=== PATIENT | male | born 1945 | race Caucasian/White ===

== ENCOUNTER → 2019-05-15 | Outpatient (CLI) | payer SELFPAY ==
--- NOTE | 2019-05-15 12:35 | CT_ITS ---
STUDY: CARDIAC CALCIUM SCORING - CT CHEST REASON FOR EXAM: Male, 73 years old. Screening RADIATION DOSAGE (If Supplied By Facility): CTDIvol = ( 12.19 ) mGy, DLP = ( 219.42 ) mGycm TECHNIQUE: Axial non-enhanced images were acquired through the heart for the sole purpose of measuring coronary artery calcium. Individualized dose optimization techniques were used for this CT. COMPARISON: None. FINDINGS: Please see the patient's medical record for a personalized calcium score. There are mild emphysematous changes noted in the lungs. CT/CCTA Calcium Scoring IMPRESSION: Please see the patient's medical record for a personalized calcium score. Mild emphysema. Please go to: [email or web address] , for a description of the calculator. Electronically Signed: Chaim Booth, at 14:49 EDT Tel , Service support ,
--- NOTE | 2019-05-15 12:35 | CT_ITS ---
STUDY: CARDIAC CALCIUM SCORING - CT CHEST REASON FOR EXAM: Male, 73 years old. Screening RADIATION DOSAGE (If Supplied By Facility): CTDIvol = ( 12.19 ) mGy, DLP = ( 219.42 ) mGycm TECHNIQUE: Axial non-enhanced images were acquired through the heart for the sole purpose of measuring coronary artery calcium. Individualized dose optimization techniques were used for this CT. COMPARISON: None. FINDINGS: Please see the patient's medical record for a personalized calcium score. There are mild emphysematous changes noted in the lungs. CT/Limited Chest CT w/CCTA IMPRESSION: Please see the patient's medical record for a personalized calcium score. Mild emphysema. Please go to: [email or web address] , for a description of the calculator. Electronically Signed: Chaim Booth, at 14:49 EDT Tel , Service support ,
[2019-05-15 12:44] VITALS: BP 162/73; PULSE 57; RESP 16; O2SAT 94
--- NOTE | 2019-05-15 15:41 | CA.SCORE ---
Calcium Scoring Date of Study:: 05/15/19 Coronary Calcium Scoring: High-resolution Computed Tomographic imaging of the chest was performed on [05/15/2019 ], with particular attention paid to the coronary arteries. Images from the examination were analyzed for the presence and extent of coronary artery calcification , using coronary calcium quantification software. The patient tolerated the procedure well and there were no complications. The results of the coronary calcification analysis are provided below. - Findings Left Main (LM): 0 Left Anterior Descending (LAD): 548 Left Circumflex (LCX): 0 Right Coronary Artery (RCA): 805 Total Agatston Score: 1,353 Percentile Rankin - Conclusion Calcium Scoring Interpretation: Calcium Score Interpretation 0 No identifiable atherosclerotic plaque. Very low cardiovascular disease risk. <5% chance of presence coronary artery disease A Negative Examination 1-10 Minimal Plaque burden. Significant coronary artery disease very unlikely. 11-100 Mild plaque burden. Likely mild or minimal coronary atherosclerosis. 101-400 Moderate plaque burden Moderate non-obstructive coronary artery disease highly likely. Over 400 Extensive plaque burden. High likelihood of at least one significant coronary stenosis (>50% diameter) The total calcium score (1353) is between the 75th and 90th percentile for men over the age of 74. (Exact percentile calculated to be 79%; this means 70% of the population has a lower calcium score in 21% of the population is a higher calcium score than this patient.) Full evaluation of cardiac risk including assessment of all conventional risk factors and the scores and percentile rankings reported herein should be evaluated in this context.
== END | disposition home or self-care (01) ==
PROVIDERS: Family Provider Internal Medicine; PCP Internal Medicine; Referring Provider Internal Medicine; Visit Provider Internal Medicine
DX: E78.5 Hyperlipidemia, unspecified (principal)
CPT/HCPCS: 75571; 76380

== ENCOUNTER → 2019-06-03 | Outpatient (CLI) | payer MEDICARE, SELFPAY ==
[2019-06-03 11:32] VITALS: BMI 34.5
[2019-06-03 12:38] LABS: Absolute Lymphocyte Count 2.02 X10^3/uL (0.83-4.51); Absolute Neutrophil Count 6.7 X10^3/uL (2.0-7.7); Basophil# 0.04 X10^3/uL; Basophil% 0.4 % (0-1); Eosinophil# 0.34 X10^3/uL; Eosinophils% 3.4 % (0-5); Hematocrit 44.7 % (40-54); Hemoglobin 15.1 g/dL (13.0-16.5); Lymphocyte # 2.02 X10^3/ul (4.0); Lymphocyte % 20.5 % (19-41); Mean Corp Hgb Conc 33.8 g/dL (32-36); Mean Corpuscular Hgb 30.2 pg (27.0-32.0); Mean Corpuscular Volume 89.4 fL (80-94); Mean Platelet Vol. 10.4 fl (6.2-12.0); Monocyte# 0.76 X10^3/uL; Monocyte% 7.7 % (0-10); NRBC Flagged by Analyzer 0 % (0-5); Neutrophil # 6.68 X10^3/uL (2.7-7.7); Neutrophil % 67.7 % (47-70); Platelet Count 196 K/mm3 (150-450); RBC Distribution Width CV 13.5 % (11.6-14.6); RBC Distribution Width SD 44.3 fl (35.1-43.9); White Blood Count 9.9 K/mm3 (4.4-11.0)
[2019-06-03 13:03] LABS: Anion Gap 5 (5-15); BUN 24 mg/dL (7-18); Calcium,Total 9.6 mg/dL (8.5-10.1); Chloride 106 mmol/L (98-107); EST Glomerular Filtration Rate 63 mL/min (>60); Est Glom Filt Rate - Afr Amer 76 mL/min (>60); Glucose 116 mg/dL (74-106); Sodium Level 138 mmol/L (136-145)
== END | disposition home or self-care (01) ==
PROVIDERS: Family Provider Internal Medicine; PCP Internal Medicine; Referring Provider Internal Medicine Cardiovascular Disease; Visit Provider Internal Medicine Cardiovascular Disease
DX: R93.1 Abnormal findings on diagnostic imaging of heart and coronary circulation (principal); I10 Essential (primary) hypertension
CPT/HCPCS: 36415; 80048; 85025

== ENCOUNTER 2019-06-29 07:53 | Day surgery (SDC) | payer MEDICARE, SELFPAY ==
[2019-06-03 11:32] VITALS: BMI 34.5
[2019-06-26 14:16] VITALS: BMI 34.5
[2019-06-29 08:08] VITALS: BMI 35.2
--- NOTE | 2019-06-29 08:10 | PCM.HP.BLA ---
<KayeChet - Last Filed: 06/29/19 09:12> History and Physical Patient seen and evaluated. No changes noted. <Dante Douglass - Last Filed: 06/29/19 10:55> History and Physical Date of Admission: 06/29/19 HPI HPI History of Present Illness Details: Pleasant 73-year-old man with a history of hypertension hyperlipidemia who presents for evaluation of his elevated calcium score. In 2000 he had undergone a stress test which was apparently abnormal and underwent a cardiac catheterization with demonstrated no significant abnormalities. He also underwent stress testing in 2013 for atypical chest discomfort we did not do note any ischemia. A prior echocardiogram had been performed in 12/2012 with preserved ejection fraction of 65%. He does have some shortness of breath with exertion but has had no chest pain no palpitations no presyncope or syncope. He has been compliant with his medications and his lipid profile have actually been excellent. He did undergo a coronary calcium score and it was noted that he had calcification in the left anterior descending artery as well as the right coronary artery of over 400 units his total score was over 1300 units. His physical exam here today demonstrates clear lung patino regular rate and rhythm no pedal edema his electrocardiogram in your office demonstrated sinus bradycardia with a rate of 57 bpm. Intake Vital Signs 06/03/19 Height 6 ft 1 in 06/03/19 Weight: 262 lb 06/03/19 Body Mass Index (BMI) 34.5 06/03/19 Blood Pressure 167/91 H 06/03/19 Respiratory Rate 18 06/03/19 Pulse Rate 62 06/03/19 Pulse Ox 95 Intake Visit Reasons: PCP ref'd for abn calcium score Allergies No Known Allergies Allergy (Verified 06/03/19 10:03) Medications ascorbic acid (vitamin C) 1,000 mg tablet 1 g PO DAILY tab 06/02/19 [History Confirmed 06/03/19] atenolol 25 mg tablet 25 mg PO DAILY 06/02/19 [History Confirmed 06/03/19] biotin 1 mg capsule 1 mg PO DAILY 06/02/19 [History Confirmed 06/03/19] cholecalciferol (vitamin D3) 2,000 unit capsule 2,000 unit PO DAILY 06/02/19 [History Confirmed 06/03/19] cyanocobalamin (vitamin B-12) 1,000 mcg capsule 1,000 mcg PO DAILY 06/02/19 [History Confirmed 06/03/19] losartan 100 mg-hydrochlorothiazide 25 mg tablet 1 tab PO DAILY 06/02/19 [History Confirmed 06/03/19] multivitamin tablet 1 tab PO DAILY 06/02/19 [History Confirmed 06/03/19] omega-3 fatty acids 1,000 mg capsule 1,000 mg PO DAILY 06/02/19 [History Confirmed 06/03/19] rosuvastatin 20 mg tablet 20 mg PO DAILY 06/02/19 [History Confirmed 06/03/19] PENDING SALE TO [facility] Medical History Atherosclerosis of coronary artery of [place] heart without angina pectoris (Chronic) Essential (primary) hypertension (Chronic) Hyperlipidemia (Chronic) Arthritis (Chronic) Dupuytrens contracture (Chronic) Kidney stones (Chronic) Obesity (Chronic) Type 2 diabetes mellitus (Chronic) Vitamin D deficiency (Chronic) Surgical History H/O arthroscopic knee surgery (Resolved) History of foot surgery (Resolved) History of left heart catheterization (Resolved 2000) History of vasectomy (Resolved) Family History Brother Heart disease valvular Other Colon cancer Social History (Updated 06/03/19 @ 11:53 by Chet Restrepo MD) Smoking Status: Former smoker alcohol intake: current alcohol intake frequency: other ROS Const Const: Negative for fatigue, weakness, headache(s), frequent falls, difficulty sleeping or excessive sweating Eyes Eyes: Negative for loss of peripheral vision, transient loss of vision, blurry vision, double vision or tunnel vision ENT ENT: Negative for headache(s), dizziness, Nosebleed/epistaxis or balance problems Cardio Chest Pain: No Palpitations: No Edema: None Muscle aches with walking: None Resp Respiratory: Positive for SOB with activity; negative for SOB at rest, SOB orthopnea\SOB lying down, Cough or paroxysmal nocturnal dyspnea GI GI: Negative nausea, vomiting, heartburn or black,tarry stools : Negative for hematuria Musc Musc: Negative for muscle aches/ myalgia, muscle weakness, joint pain or balance problems Skin Skin: Negative non-healing lesions, rash or unusual bruising Neuro Neuro: Negative for dizziness, lightheadedness, near syncope, syncope, orthostatic symptoms, frequent falls, headache(s), weakness, blurry vision, double vision or lack of coordination Prudencio Hematologic/Lymphatic: Negative for easy bleeding or easy bruising Endo Endo: Negative for fatigue, excessive sweating or increased thirst/drinking Psych Psych: Negative for anxiety or depression Allergy Allergy/Immunology: Negative for hives, Negative for rash Cardiology Exam Const Appearance: cooperative, healthy appearing, no acute distress, well developed and well groomed Nutritional Appearance: average body habitus and well nourished Orientation: alert, awake and oriented x3 Head Head: normal to inspection, normocephalic and atraumatic Ears: hearing grossly normal bilaterally and external ears normal Nose: external nose normal, nares normal, nasal mucous membranes and turbinates normal, septum normal, no nasal discharge Face and Sinus: face symmetric Mouth: oral mucosae normal, tongue normal, oropharynx normal and moist mucous membranes Teeth and gingiva: dentition normal Throat: posterior oropharynx normal, tonsils normal and uvula midline Eyes General: appearance normal, both eyes and all related structures Eyelids: eyelids normal Conjunctivae: conjunctivae normal Pupils: PERRL, normal by confrontation and accommodation normal EOM: EOM intact bilaterally Neck Neck: normal visual inspection, trachea midline and no JVD JVD: +5 Carotids: normal carotid upstroke and bounding pulses Chest Chest inspection: normal inspection of the chest, symmetric chest movement and normal respiratory effort Auscultation: Bilateral: Clear to Auscultation Cardio Palpation: normal PMI Rate: regular rate Rhythm: regular rhythm Heart sounds: S1 normal, S2 normal and normal, physiologic split S2; negative rub, gallop or murmur GI GI: normal to inspection, soft, no hepatosplenomegaly and bowel sounds present Neuro General: alert, awake, oriented x3, gait normal, moves all extremities and no focal sensory deficit Skin Skin: no rashes or lesions noted Extremities Pulses: Normal: Right Femoral Pulse, Left Femoral Pulse, Right Dorsalis Pedis Pulse, Left Dorsalis Pedis Pulse, Right Posterior Tibial Pulse, Left Posterior Tibial Pulse, Right Radial Pulse, Left Radial Pulse Lower Extremity Edema: None: Bilateral Musculoskel Musculoskeletal: No joint tenderness Psych Psychological: normal affect Assessment & Plan 1. Abnormal Heart Score CT R93.1 Plan He does have an abnormal calcium score predominantly in the LAD and right coronary artery distributions. I did discuss with him about the risk benefits and alternatives and treatment modalities. At this time he would prefer a left heart catheterization though he is asymptomatic. I have discussed the above with him he is agreeable to proceed and we would undertake this in the next few weeks. Orders Orders: 12 Lead EKG performed by B[facility] Today Left Heart Cath/COR/LV Percut 4 Weeks Basic Metabolic Profile (BMP) Today CBC W/Diff, Automated Today 2. Essential (primary) hypertension I10 Plan He does have a history of hypertension and his blood pressure is under good control as per your office notes. His blood pressure here today is elevated for obvious reasons. Orders Orders: 12 Lead EKG performed by [facility] Today CBC W/Diff, Automated Today 3. Hyperlipidemia E78.5 Plan He does have a history of hyperlipidemia and is aggressively treated through your office. I would not suggest that we make any changes. I will complicate the results of his heart catheterization with you afterwards. Orders Orders: 12 Lead EKG performed by [facility] Today Plan Detail Other Orders Orders: 12 Lead EKG performed by BMS Today I25.10 Follow Up 1 Year (termination clerk) Coding Level of Care Code Off vis,new,level 4 Diagnoses Abnormal Heart Score CT R93.1 Essential (primary) hypertension I10 Hyperlipidemia E78.5 Coding Level of Care Code Off vis,new,level 4 Diagnoses Abnormal Heart Score CT R93.1 Essential (primary) hypertension I10 Hyperlipidemia E78.5 Supplemental Info Supplemental Information Diagnostics Stress Test Nuclear Medicine 12/08/13 Chest X-Ray 01/24/[address] 05/15/19 06/03/19 [id number]<Electronically signed by Chet Restrepo MD> Date Chet Restrepo MD
--- NOTE | 2019-06-29 09:53 | CL.D_ITS ---
Patient Name: RANI VELASCO Study Date: 06/29/2019 Performing: Chet Restrepo MD Ht: 72.83 inches 185 cm : 1945 Wt: 262.35 lbs 119 kg Age: 73 Gender: male BSA: 2.41 PROCEDURE(S) PERFORMED BN84-DKK/COR/LV CLINICAL PROFILE AND INDICATIONS Indications: Suspected CAD Heart Failure: None Stress/Imaging Stress/Image Study Performed: No CAD Presentations: No Sxs, no angina. Other: calcium score high CONCLUSIONS Non obstructive coronary arteries RECOMMENDATIONS Medical therapy DESCRIPTION OF PROCEDURE The patient arrived to the procedure lab. The risks and benefits of the procedure as well as a full d escription of our services here and current unavailability of surgical backup were fully explained to the patient and/or their significant other prior to the catheterization. The Timeout was completed, verifying the correct patient and procedure. The patient's procedural site was prepped and draped in the usual fashion. Local anesthetic was given subcutaneously to right radial region with Lidocaine 2% . Using a modified Seldinger technique, arterial access was obtained via the right radial artery, a 6 Fr sheath was inserted. Left Coronary Artery selective angiography was performed in multiple views u sing a 5 Fr. 4.0 [place] catheter. Right Coronary Artery selective angiography was then performed in mu ltiple views using a 5 Fr. 4.0 [place] catheter. Left Ventriculography was performed in REDD projection using a 5 Fr. Pig[place] catheter. LV to AO pullback pressures were then recorded.The arterial sheath was pulled and a TR Band was applied for hemostasis w/ 11ml air CORONARY ANGIOGRAPHY DOMINANCE: Right Dominant LEFT HEART ASSESSMENT Left Ventricular Ejection Fraction: by LV Gram 60 % Normal LV wall motion Normal Left Ventricular systolic function LEFT MAIN: Angiographically normal LEFT ANTERIOR DESCENDING ARTERY: Mild calcification, Mild luminal irregularities CIRCUMFLEX ARTERY: Mild luminal irregularities RIGHT CORONARY ARTERY: Mild luminal irregularities less than 30% COMPLICATIONS No Complications PROCEDURE MEDICATIONS Versed 1 mg IV Fentanyl 50 mcg IV Versed 1 mg IV Oxygen: 2 L/min via nasal cannula Heparin diluted in 23cc Heparinized saline. Patient given 10cc IA of this solution. 06/29/2019 09:23: 00 SUMMARY OF HEMODYNAMIC DATA Time AIR REST ECG 08:13:17 AO 119/57 (82) SA 09:27:34 LV 126/-14, 3 09:36:17 LV 123/-14, 2 09:36:21 LV 131/-12, 12 09:37:04 LVp 129/-12, 6 09:37:18 AOp 135/55 (84) 09:37:23 Signed By Chet Restrepo MD On 06/29/2019 09:52:33 Chet Restrepo MD
== END 2019-06-29 12:00 | disposition home or self-care (01) ==
LOC: CLSP 07:54
PROVIDERS: Family Provider Internal Medicine; PCP Internal Medicine; Referring Provider Internal Medicine Cardiovascular Disease; Visit Provider Internal Medicine Cardiovascular Disease
DX: R93.1 Abnormal findings on diagnostic imaging of heart and coronary circulation (principal); R06.02 Shortness of breath; I25.10 Atherosclerotic heart disease of native coronary artery without angina pectoris; I10 Essential (primary) hypertension; E78.5 Hyperlipidemia, unspecified; M19.90 Unspecified osteoarthritis, unspecified site; E11.9 Type 2 diabetes mellitus without complications; E66.9 Obesity, unspecified; Z68.34 Body mass index [BMI] 34.0-34.9, adult; Z87.442 Personal history of urinary calculi; Z87.891 Personal history of nicotine dependence; Z79.899 Other long term (current) drug therapy
CPT/HCPCS: 93458; 99152; 99153; J7040; Q9967; C1769; C1894

== ENCOUNTER 2019-12-11 14:30 | Outpatient (RCR) | payer MEDICARE, SELFPAY ==
--- NOTE | 2019-12-09 08:46 | HP.PTEVAL ---
Patient's Visit Information RANI VELASCO Jr. is a 74 year old M referred to Physical Therapy by Chaim Pat MD with a diagnosis of R hip OA. Date of Evaluation: 12/09/19 Physical Therapist: Zev Denney, PT, ATC - Visit Plan Frequency: 1x/Week Duration: 1 Week Plan: Issue and instruct pt on HEP consisting of R hip and core strengthening ex's - Subjective Findings: Pt reports he has a chronic Hx of R hip pain. Pt reports he had xrays which revealed he is bone on bone in the R hip. Pt reports he is taking pain meds for his R hip, but notes he has been told he needs to have a DAY. Pt reports pain will awaken him in the morning. Pt reports he has pain mostly when he stands or walks for a long period of time. Pt reports his R LE will occasionally feel like it is going to give out on him. No falls at this time. Pt reports he is planning to go to [employer] on the of this month and would like to do all he can prior to leaving. 1/10 pain at rest, 6/10 pain at worst - Pain R hip Pain Intensity (Out of 10): 1 Pain Intensity Range: 6 - Objective Neuro: B LE sensation is WNL to light touch. Patellar reflex = 1/3. Palpation: No abnormalities or deformities at this time. Minor pain on greater trochanter. ROM: B LE's are WFL at this time compared bilaterally. MMT: R hip IR and ER 4-/5 and painful with testing. All other movements 5/5 throughout. Balance: Pt is unable to single limb stance without holding on with UE's - Goals Goal 1:: I with HEP after 2 visits Goal Time Frame: 1 Week - Rehabilitation Potential Physical Therapy Diagnosis: Pt has R hip pain, weakness, and intolerance for prolonged ambulation secondary to R hip OA Rehabilitation Potential: Good - Anticipated Interventions Patient/Client Instruction: Educate patient on: Condition, Plan of Care For the Purpose of:: To improve self management Therapeutic Exercise to Include: Strength training, Balance training, Dynamic Lumbar Stabilization For the Purpose of:: To decrease pain, To improve muscle performance and motor function Thank you for the opportunity to evaluate your patient. For Medicare and Medicare HMO plans, please review the plan of care and approve it. It will need to be FAXED BACK to us at [phone] for Medicare purposes. For Medicare only, by signing this I certify the plan of care. Please let me know if there are questions or concerns regarding this plan of care. Physician Signature: Date:
--- NOTE | 2019-12-11 15:08 | HP.PTDCSUM ---
HP - PT D/C Summary It has been my pleasure to treat RANI VELASCO Jr. under orders from Chaim Pat MD, for the diagnosis of R hip OA for a total of 2 visit(s). Discharge Date: Please see the following information for a summary of their discharge status. - Subjective Subjective: Pt reports he is sore today - Pain R hip Pain Intensity (Out of 10): 2 - Objective Objective/Function: Pt is now I with HEP - Goals Goal 1:: I with HEP after 2 visits - Plan Plan: Discharge - D/C Information If there are questions or concerns regarding this patient's physical therapy, please feel free to call me at [phone]. Thank you for the referral of this patient. Sincerely, Zev Denney, PT, ATC
== END 2019-12-11 19:00 | disposition home or self-care (01) ==
LOC: PT 14:30
PROVIDERS: PCP Internal Medicine; Referring Provider Specialist; Visit Provider Specialist
DX: M16.11 Unilateral primary osteoarthritis, right hip (principal)
CPT/HCPCS: 97110; 97161

== ENCOUNTER → 2020-01-12 09:46 | Outpatient (CLI) | payer MEDICARE, SELFPAY ==
[2020-01-12 11:06] LABS: Creatinine, Serum 1.12 mg/dL (0.70-1.30); EST Glomerular Filtration Rate 68 mL/min (>60); Est Glom Filt Rate - Afr Amer 82 mL/min (>60)
== END ==
PROVIDERS: PCP Internal Medicine; Referring Provider Specialist; Visit Provider Specialist
DX: R22.42 Localized swelling, mass and lump, left lower limb (principal)
CPT/HCPCS: 36415; 82565

== ENCOUNTER → 2020-03-22 10:57 | Outpatient (CLI) | payer MEDICARE, SELFPAY ==
--- NOTE | 2020-03-22 11:03 | RAD_ITS ---
STUDY: X-RAY CHEST REASON FOR EXAM: Male, 74 years old. Preop for hip surgery TECHNIQUE: 2 PA and 2 lateral views of the chest COMPARISON: 2014 FINDINGS: There are interstitial changes of the lungs. There is no demonstrated pleural abnormality. Normal size heart. Normal mediastinum and carroll. Normal visualized pulmonary arteries. Normal visualized aortic arch and descending thoracic aorta. There are diffuse degenerative changes of the visualized thoracic spine. Normal visualized ribs, clavicles, and shoulders. There is no demonstrated abnormality of the visualized soft tissue structures of the upper abdomen. RAD/Chest PA and Lateral IMPRESSION: Nonacute interstitial changes in both lung patino without a superimposed acute pulmonary process. Electronically Signed: Eugene Russell MD at 11:38 EDT , Service support ,
== END ==
PROVIDERS: PCP Internal Medicine; Referring Provider Internal Medicine; Visit Provider Internal Medicine
DX: Z01.818 Encounter for other preprocedural examination (principal)
CPT/HCPCS: 71046

== ENCOUNTER 2020-03-30 07:09 | Observation (INO) | payer MEDICARE, SELFPAY ==
--- NOTE | 2020-03-15 13:52 | HP.PCM_ITS ---
History and Physical History and Physical [facility] Patient Name: Carlos Suarez Jr : 1945 From: SUNIL LEWIS PA-C DATE OF SURGERY: 03/23/2020 SCHEDULED PROCEDURE: Right total hip arthroplasty HISTORY OF PRESENT ILLNESS: Preoperative history and physical exam was performed on March 14, 2020. This is a 74-year-old male who has been having ongoing pain in his right hip since September 2019. Patient denied any significant trauma or injury. His pain can reach a size a 6/10. He describes his pain as being aching and sharp. He has increased pain going up and down stairs. He does have start up pain. Pain is located in the lateral hip, groin, anterior thigh. Pain does occasionally wake him at night. Patient has difficult time with activities of daily living including getting dressed and putting on his socks and shoes. Patient did go on vacation earlier this year which increased his right hip pain which she was placed on prednisone pack. His walking has been significantly affected. Patient has tried conservative measures consisting of rest with no relief in symptoms. He has attempted previous physical therapy and home exercises with no relief. He states he has been using meloxicam with minimal relief. Denies previous surgery on the right hip. Patient denies recent fevers, chills, recent infections. We are obtaining surgical clearance from patient's primary care physician Dr. walker. Patient has had a previous heart catheterization by Dr. Restrepo June 29, 2019. He currently denies any chest pain, shortness of breath, fevers chills, recent infections. After failing conservative measures and discussing treatment options with Dr. Chaim Pat, the patient does wish to proceed with a right total hip arthroplasty. REVIEW OF SYSTEMS: ROS: Const: Denies anorexia, change in appetite, fever, difficulty sleeping, weight change. CV: Denies chest pain, heart murmur, irregular heartbeat and peripheral vascular disease. Resp: Denies asthma, cough, pneumonia, sleep apnea, shortness of breath, tuberculosis and wheezing. GI: Denies constipation, diarrhea, heartburn, nausea, rectal itching, bloody stools and vomiting. : Denies incontinence. Musculo: Denies leg swelling, pain, trouble walking and weakness. Skin: Denies Raynaud's, history of shingles and tattoo. Neuro: Denies ambulatory dysfunction, dizziness, numbness/tingling and tremor. Psych: Denies anxiety, depression, insomnia, mental illness and stress. Prudencio/Lymph: Denies anemia, bleeding/bruising tendency and past transfusion. Reviewed, no changes. PAST MEDICAL HISTORY: Advance Care Plan: Other Directive, LIVING WILL Effective Date: 05/15/2018 Other Directive, POA Effective Date: 05/15/2018 PMH: Medical Problems: Arthritis, High Blood Pressure, Kidney Stones, Hypercholesterolemia Accidents: None Surgical Hx: LT Knee Arthroscopy - (12/2011) LT Toe SX - (1993) [facility] Anesthesia Complications: None Assistive Devices: Glasses Reviewed, no changes. SOCIAL HISTORY: SH: Marital: .Occupation: Retired.Work Status: Retired.Hand Dominance: Right- Handed. Personal Habits: Smoking: Patient is a former smoker.Cigarette Use: Former.Alcohol: Daily.Drug Use: Denies Use.Enjoy Exercising: Exercises 1-3 X/Week. Reviewed, no changes. VITALS: Ht: 72.5 Wt: 278lb Wt k.101 BMI: 37.2 BP: 186/108 Pulse: 88 Resp: 16 T: 97.2 T: 36.2C ALLERGIES: No Known Drug Allergy MEDICATIONS: Meloxicam 15 mg 1 by mouth every day, Atenolol 25 mg 1 tab PO daily, Losartan Potassium 100 mg 1 tab PO daily, Vitamin C 1000 mg 1 tab PO daily, Vitamin D3 5000 Unit 1 cap PO daily, Centrum Silver 1 tab PO daily, Fish Oil 1000 mg 1 cap PO every other day, Flax Seed Oil 1300 mg 1 cap PO every other day, Vitamin B-12 2500 mcg 1 tab PO every other day, Biotin 5000 mcg 1 cap PO every other day, Aspirin 81 mg 1 by mouth every day PRE-OP EXAM: General appearance:NORMAL Other: Eyes: Conjunctivae and lids: NORMAL Pupils: ERR Ears, Nose, Mouth, and Throat: NORMAL Other: Inspection of lips, teeth and gums: NORMAL Other: Neck: Examination of neck: no masses noted. Respiratory: Assessment of respiratory effort: NORMAL Other: Auscultation of lungs: clear to auscultation no wheezes, rhonchi or rales. Cardiovascular: Auscultation of heart: regular rate and rhythm, no murmurs, gallops or rubs. Exam of carotid arteries: NORMAL Other: Gastrointestinal: Exam of abdomen: soft, nontender, nondistended bowel sounds present. PHYSICAL EXAMINATION: She does walk with an antalgic gait. Right hip is cool to touch without erythema or signs of infection. Right hip has tenderness to palpation of the lateral aspect. Range of motion right hip: Flexion 60, internal rotation 40, external rotation 20, positive obligatory external rotation with flexion. 4/5 hip strength. Sensation intact to light touch. Neurovascularly intact. IMAGING STUDIES: Previous x-rays of the right hip reveal joint space narrowing, subchondral sclerosis, osteophyte formation consistent with severe stage IV osteoarthritis. IMPRESSION: 1. Severe right hip osteoarthritis 2. Hypertension 3. Hyperlipidemia 4. History of kidney stones 5. History of heart catheterization June 29, 2019 PLAN: Dr. Chaim Pat did discuss and review with the patient all treatment options including surgical versus nonsurgical options. Patient does wish to proceed with the above-stated procedure. Potential risks, benefits, and complications of the procedure were discussed in detail including but not limited to , infection, nerve and blood vessel damage, persistent pain, numbness, tingling, paresthesias, blood clot, pulmonary embolism, and requirement for possible further surgery. The patient expressed full understanding and has no further questions for the doctor. Patient does agree to proceed with the above-stated procedure and has signed the surgery consent form. We discussed the current risks associated with COVID 19. This does include the risk of exposure while in the hospital. Patient was reassured local hospitals have low infection rates and are taking all necessary precautions to avoid exposure to patients. In addition, we discussed strategies that can be used to help limit exposure including those that limit the patient's time in the hospital. Also using strategies to limit the patient's need for continued inpatient services after being discharged from the hospital. Patient was notified that we will need to comply with any screening or testing the hospital wishes to perform or that surgery may be delayed for any positive results. This dictation was created using voice recognition software. Phonetic and/or grammatical errors may exist. ___ I have re-examined the patient. There are no clinical changes since date of exam. ___ See progress notes for changes. ___ Dictated on admission Date: Time: Signature:
[2020-03-30] VITALS (15 sets, daily range): BP systolic 105–152; BP diastolic 60–85; PULSE 43–72; RESP 16–18; TEMP 36.3–37.1; O2SAT 92–100; BMI 37.0
[2020-03-30 06:11] LABS: Bedside Glucose 291 mg/dL (70-110)
[2020-03-30] MEDS: Acetaminophen 500 MG Tablet 1000 MG PO ×3 (06:20→21:41)
[2020-03-30] MEDS: Gabapentin 600 MG Tablet PO (06:20)
[2020-03-30] MEDS: Lactated Ringers 1,000 ML 999 ML IV ×2 (06:22→09:00)
[2020-03-30] MEDS: Insulin Lispro 100 UNIT/ML INSULN.PEN SC ×2 (06:23→16:45)
[2020-03-30] MEDS: Lactated Ringers 1,000 ML 75 ML IV (07:18)
--- NOTE | 2020-03-30 07:30 | RAD_ITS ---
STUDY: X-RAY - PELVIS AND RIGHT HIP REASON FOR EXAM: Male, 74 years old. ANTERIOR TOTAL HIP TECHNIQUE: 1 views of the pelvis and hip. COMPARISON: None. FINDINGS: Intraoperative imaging provided for right hip replacement. There is good alignment. RAD/Hip 1 view with Pelvis IMPRESSION: Intraoperative imaging provided for right total hip replacement. There is good alignment. Electronically Signed: Won Rebolledo, at 10:20 EDT , Service support ,
[2020-03-30] MEDS: dexAMETHasone 10 MG/ML Vial IV (07:45)
--- NOTE | 2020-03-30 09:03 | PCM.OPRPT ---
Report of Operation Date of Procedure: 03/30/20 Pre-Operative Diagnosis: Right hip primary osteoarthritis Post-Operative Diagnosis: Right hip primary osteoarthritis Surgery/Procedure Performed:: Right minimally invasive direct anterior hip replacement Description of Surgical Findings:: Stable hip with equal leg lengths injection molding technician: Lucretia Saenz Type of Anesthesia:: Spinal Anesthesiologist: Danny Estrada Special Medications: 2 g Ancef, 1 g TXA at incision, 1 g TXA closure, 10 mg Decadron, joint cocktail (5 mg Duramorph, 30 mL of 0.5% Ropivicaine, 1000 units of epinephrine, 30 mg of Toradol) Specimen's removed: Bony cuts Estimated Blood Loss (mL): 200 Fluids Replaced: 1000 mL crystalloid Description of Procedure: Components used: 1. Accolade 2 [place] femoral stem size 7 132? 2. [place] trident 2 acetabular shell size 62 mm 3. Ami X3 polyethylene G 4. Ami Biolox delta 36mm, +2.5mm femoral head Brief history operative indications: 74yo male who failed conservative measures for their hip osteoarthritis. X-rays were consistent with osteoarthritis including joint space narrowing, osteophyte formation and subchondral cysts. Total hip replacement was discussed with the patient with risks and benefits including but not limited to blood loss, DVTs, PEs, neurovascular damage, dislocation, general risks of anesthesia including loss of life. Patient demonstrated an understanding medical clearance is obtained the patient was consented for surgery. Procedure: On the date of procedure the patient's right hip was marked in the preoperative area. Patient was then taken back to the operating room where anesthesia assumed control of the C-spine and airway and administered anesthetic. Patient was transferred to the operating table and placed in the supine position. The hips were placed at the break of the bed and a sacral bump was placed. The right lower extremity was then prepped out in a sterile fashion using chlorhexidine while the surgeon scrubbed. The PA was vital in the positioning of the patient. Upon reentering the room the right lower extremity was draped in the standard orthopedic fashion and the incision was marked. A timeout was called and everyone agreed upon the side, the site, the procedure be performed, antibody given, and patient's identity. At this time incision was made through skin, subcutaneous tissue, and fat down to fascia. The fascia was then incised and the TFL was retracted laterally. A retractor was placed on the lateral border of the femoral neck. Attention was directed to the inferior portion of the approach and all crossing vessels were identified and appropriately coagulated. A retractor was then placed on the medial portion of the femoral neck. The anterior capsule was then cleared of all soft tissue and then H shaped capsulotomy was made. The retractors were then placed inside the capsule. The femoral neck was identified and a cleanup cut was made. At this time a power corkscrew was used to remove the femoral head. Attention was then turned toward the acetabulum where the soft tissues were appropriately retracted and the acetabulum was sequentially reamed to 62 mm. A 62 mm cup was then selected and impacted into place. Acetabular liner was impacted into place and locking mechanism was verified. The position of the acetabular cup was then verified under live fluoroscopy. Attention was then turned to the femur. Soft tissue releases on the medial and lateral femoral neck were appropriately done, the leg was externally rotated and lateralized. A Mckeon retractor was placed medially and proximally to the greater trochanter this allowed appropriate visualization and exposure of the femoral canal. Rongeour was then used to remove excess lateral bone. A canal finder and entry broach were used to open the proximal canal. Once we verified we were down the femoral canal we subsequently broached up to a size 7 femur. The appropriate neck was placed in the previously selected head was trialed with a +2.5 mm neck. Traction was pulled and the hip was reduced with internal rotation. Once it was appropriately reduced and stability was checked. There was minimal shuck, equal leg lengths and appropriate stability with hyperextension and external rotation as well as with 90? flexion and internal rotation. Fluoroscopy was then also used to verify the position of the components and leg lengths using the contralateral side for comparison. The trial components were then dislocated the proximal femur was again exposed and the components were removed from the wound. The final components were verified and opened. The wound was copiously irrigated out with normal saline. The acetabulum was checked for any residual debris. The final components were placed and impacted. Traction and internal rotation were again used to reduce the hip. After adequate reduction the hip remained stable with appropriate leg lengths. The final components were once again checked with live fluoroscopy and were found to be satisfactory. The wound was then copiously irrigated with normal saline once more, and hemostasis was obtained. Closure was then done using #1 Vicryl runner to close the fascia. A 2-0 vicryl interuppted sutures were used to close the subcutaneous skin. A 3-0 Monocryl and Steri-Strips were used for final skin closure. A Silverlon dressing was placed. Patient was awakened by anesthesia and transferred to the [facility]. Patient was then transferred to the PACU for recovery. Postoperative plan: Patient will get 24 hours postop antibiotics. Patient will get in-house physical therapy and will be weight-bear as tolerated. Patient will follow up in office in 2 weeks for a wound check and x-rays. - Complications No intraoperative complications - Admit VTE Documentation VTE Present on Admission: No VTE Mechan Device Prophylaxis: SCD's, Thigh High MARLENE Hose VTE Pharm Prophylaxis ordered?: Yes Procedure Criteria Procedure Type: Essential Procedure Essential: Yes Criteria Statement: On 01/19/2020 the [place] Department of Health ([facility]) Public Order signed by [facility] Director Marixa Mendez M.D., regarding the Management of Non-Essential Surgeries and Procedures for the purpose of preserving Personal Protective Equipment (PPE) and critical hospital capacity and resources within [place] went into effect as of 01/20/2020 at 5:00PM. According to the [facility] Public Order: This action will remain in full force and effect until the State of Emergency declared by the Governor no longer exists or the Director of the [facility] rescinds or modifies this Order. This [facility] order stated all non-essential or elective surgeries and procedures that utilize PPE should be delayed unless there is undue risk to the current or future health of a patient. After reviewing the aforementioned [facility] Public Order and the patient's clinical case, I have determined that the scheduled procedure meets the criteria to go forward. Risk to Patient if Procedure Delayed: Presence of severe symptoms causing an inability to perform ADL's
--- NOTE | 2020-03-30 09:55 | RAD_ITS ---
STUDY: X-RAY - PELVIS AND RIGHT HIP REASON FOR EXAM: Male, 74 years old. POST OP TECHNIQUE: 2 views of the pelvis and hip. COMPARISON: None. FINDINGS: Status post right hip replacement. There is good alignment. RAD/Hip Min 2 Views (Portable) IMPRESSION: Status post right total hip replacement. There is good alignment. Electronically Signed: Won Rebolledo, at 10:21 EDT , Service support ,
[2020-03-30 10:01] LABS: Bedside Glucose 167 mg/dL (70-110)
[2020-03-30] MEDS: Scopolamine 1mg/72hr Patch 1 PATCH TD (10:13)
[2020-03-30] MEDS: Lactated Ringers 1,000 ML 125 ML IV (12:05)
--- NOTE | 2020-03-30 12:10 | NURSING ---
PT STATES HE DOES NOT GET INFLUENZA VACCINE
[2020-03-30] MEDS: Multivitamins,Therapeutic Tablet 1 TABLET PO (13:44)
[2020-03-30] MEDS: Famotidine 20 MG Tablet PO (13:44)
[2020-03-30] MEDS: Ascorbic Acid 500 MG Tablet 1000 MG PO (13:45)
[2020-03-30] MEDS: Senna/Docusate Sodium 1 Tablet 2 TABLET PO ×2 (13:45→21:40)
[2020-03-30] MEDS: Ensure Surgery 237 ML LIQUID PO (13:59)
--- NOTE | 2020-03-30 15:13 | PCM.PN.HOSP ---
Reason for Visit: hip replacement Subjective: Consult requested by Dr. Pat for postoperative medical management. Been up with therapy already and walked the hallways and has some pain in his right hip but otherwise feels well. States that he is diet-controlled diabetic, recent A1c was 6.1. Blood sugar was elevated here about 2 hours after drinking a can of Ensure. Vitals/I&O's: Vital Signs Temp Pulse Resp BP Pulse Ox 36.5 C L 63 18 146/77 H 97 03/30/20 14:01 03/30/20 14:01 03/30/20 14:01 03/30/20 14:01 03/30/20 14:01 Oxygen Flow Rate (L/min) 6 Oxygen Delivery Method Room Air Weight: 127.2 kg Body Mass Index (BMI) 37.0 Finger Stick Blood Glucose 167 Intake and Output for Last 24 Hours 03/28/20 03/29/20 03/30/20 23:59 23:59 23:59 Intake Total 3335 / 3335 Balance 3335 / 3335 General: Alert, No apparent distress HEENT: Atraumatic, Normocephalic Oral: Moist Mucosa, No Gingival or Mucosal Lesions/ Ulcerations Neck: No Nodes, Trachea Midline Lungs: Clear to auscultation, Normal air movement, No rhonchi, No wheeze, No rales Cardiovascular: Regular rate, Regular Rhythm, Normal S1, Normal S2, No murmurs Abdomen: Bowel Sounds Present, Soft, Non Tender, Non-Distended, No Hepato-splenomegaly Extremities: No edema, No Calf Tenderness Psych/Mental Status: Normal Affect, Appropriate Microbiology Past 72 Hours 03/29/20 11:21 Mucosa - Nasopharyngeal Coronavirus COVID-19 PCR - Final Laboratory Results 03/30/20 06:05: POC Glucose 291 H 03/30/20 09:55: POC Glucose 167 H Current Medications Acetaminophen (Tylenol) 1,000 mg PO Q8 [facility] Last Admin: 03/30/20 13:44 Dose: 1,000 mg Documented by: Amlodipine Besylate (Norvasc) 5 mg PO QHS [facility] Ascorbic Acid (Vitamin C) 1,000 mg PO DAILY [facility] Last Admin: 03/30/20 13:45 Dose: 1,000 mg Documented by: Aspirin (Aspirin, Baby) 81 mg PO BIDCM [facility] Atenolol (Tenormin (Beta Venessa)) 25 mg PO DAILY [facility] Atorvastatin Calcium (Lipitor) 40 mg PO QHS [facility] Cholecalciferol (Vitamin D (25mcg)) 2,000 unit PO DAILY [facility] Last Admin: 03/30/20 13:45 Dose: 2,000 unit Documented by: Dextrose (D50w Syringe) 0 gm IV X1 PRN; Protocol PRN Reason: Hypoglycemia Enteral Nutritional Formula (Ensure Surgery) 237 ml PO TIDCM [facility] Last Admin: 03/30/20 13:59 Dose: 237 ml Documented by: Famotidine (Pepcid) 20 mg PO DAILY [facility] Last Admin: 03/30/20 13:44 Dose: 20 mg Documented by: Glucagon () 1 mg IM .X1 PRN PRN Reason: Hypoglycemia Hydrochlorothiazide (Hctz) 25 mg PO DAILY [facility] Lactated Ringer's () 1,000 mls @ 125 mls/hr IV .Q8H [facility] Last Admin: 03/30/20 12:05 Dose: 125 mls/hr Documented by: Cefazolin Sodium () 1 gm in 50 mls @ 150 mls/hr IV Q8H [facility] Stop: 03/30/20 23:49 Insulin Human Lispro (Humalog Kwikpen (Bkc)) 0 unit SC TIDAC [facility]; Protocol Ketorolac Tromethamine (Toradol (Bkc)) 15 mg IV Q6H PRN PRN PRN Reason: Pain Score 1-5/10 Stop: 04/01/20 07:12 Losartan Potassium (Cozaar) 100 mg PO DAILY [facility] Meloxicam (Mobic) 7.5 mg PO BID [facility] Morphine Sulfate () 2 - 4 mg IV Q2H PRN PRN PRN Reason: Pain Score 4-10/10 Morphine Sulfate () 2 - 4 mg IV Q2H PRN PRN PRN Reason: Pain Score 4-10/10 Multivitamins (Multivitamin) 1 tablet PO DAILY@0800 [facility] Last Admin: 03/30/20 13:44 Dose: 1 tablet Documented by: Ondansetron HCl (Zofran) 4 mg IV Q8H PRN PRN PRN Reason: NAUSEA Oxycodone HCl (Oxyir) 5 - 10 mg PO Q4H PRN PRN PRN Reason: Pain Score 4-10/10 Promethazine HCl (Phenergan) 12.5 mg IM Q6H PRN PRN; Protocol PRN Reason: NAUSEA/VOMITING Senna/Docusate Sodium (Senokot-S, Agnes-Colace) 2 tablet PO BID [facility] Last Admin: 03/30/20 13:45 Dose: 2 tablet Documented by: Sodium Chloride () 10 - 40 ml IV UD PRN PRN Reason: SALINE FLUSH STROKE Vital Signs/Narrative: Vital Signs Temp Pulse Resp BP Pulse Ox 03/30/20 14:01 36.5 C L 63 18 146/77 H 97 03/30/20 12:04 36.3 C L 54 L 18 137/75 H 98 03/30/20 11:26 36.6 C 56 L 16 100 03/30/20 11:15 55 L 16 120/72 100 Medical Necessity - Tobacco Use Smoking Status: Former smoker Tobacco Use: Non-smoker Assessment/Plan All Active Problems (Last Reviewed 06/03/19 @ 11:[address] Chet Restrepo MD) Dyspnea (Acute) Abnormal Heart Score CT (Acute) 1. Diabetes mellitus type 2: Diet controlled. Would expect his blood sugar to be elevated given this surgery. Put the patient on sliding scale insulin and monitor. I do not anticipate the patient requiring any medications upon discharge. 2. Hypertension: Continue with amlodipine, losartan. 3. Status post right hip replacement: Management per orthopedics 4. VTE prophylaxis: Patient is on aspirin 81 mg twice daily. Thank you for the consult. The hospitalist service will continue to follow along during the remainder of this patient's hospitalization. Inpatient E&M: 26933 Subs Hosp L2
[2020-03-30] MEDS: Cefazolin 1 GM/50 ML BAG IV ×2 (16:38→23:05)
[2020-03-30 16:41] LABS: Bedside Glucose 273 mg/dL (70-110)
[2020-03-30] MEDS: oxyCODONE 5 MG Tablet PO (16:43)
[2020-03-30] MEDS: Aspirin 81 MG TAB.CHEW PO (18:22)
[2020-03-30] MEDS: Lactated Ringers 1,000 ML 15 ML IV (20:15)
[2020-03-30] MEDS: amLODIPine 5 MG Tablet PO (21:40)
[2020-03-30] MEDS: Atorvastatin Calcium 40 MG Tablet PO (21:40)
[2020-03-30 21:55] LABS: Bedside Glucose 240 mg/dL (70-110)
[2020-03-31 02:20] VITALS: BP 126/65; PULSE 53; RESP 18; TEMP 36.6; O2SAT 95
[2020-03-31] MEDS: Acetaminophen 500 MG Tablet 1000 MG PO (05:18)
[2020-03-31 05:45] LABS: Hemoglobin 12.4 g/dL (13.0-16.5); Mean Corp Hgb Conc 33.5 g/dL (32-36); Mean Corpuscular Hgb 30.7 pg (27.0-32.0); Mean Corpuscular Volume 91.6 fL (80-94); Mean Platelet Vol. 10.5 fl (6.2-12.0); Platelet Count 189 K/mm3 (150-450); RBC Distribution Width CV 12.9 % (11.6-14.6); RBC Distribution Width SD 43.2 fl (35.1-43.9); Red Blood Count 4.04 M/mm3 (4.6-6.2); White Blood Count 13.6 K/mm3 (4.4-11.0)
[2020-03-31 06:06] VITALS: BMI 37.0
[2020-03-31 06:14] LABS: Anion Gap 7 (5-15); BUN 19 mg/dL (7-18); BUN/Creat Ratio 18.4 RATIO (10-20); Chloride 103 mmol/L (98-107); Creatinine, Serum 1.03 mg/dL (0.70-1.30); EST Glomerular Filtration Rate 75 mL/min (>60); Est Glom Filt Rate - Afr Amer 90 mL/min (>60); Estimated Creatinine Clearance 68.95 ml/min; Glucose 153 mg/dL (74-106); Potassium 4.5 mmol/L (3.5-5.1); Sodium Level 137 mmol/L (136-145)
[2020-03-31 06:50] LABS: Bedside Glucose 147 mg/dL (70-110)
[2020-03-31] MEDS: Losartan Potassium 100 MG Tablet PO (07:53)
[2020-03-31] MEDS: Ascorbic Acid 500 MG Tablet 1000 MG PO (07:54)
[2020-03-31] MEDS: Multivitamins,Therapeutic Tablet 1 TABLET PO (07:54)
[2020-03-31] MEDS: Atenolol 25 MG Tablet PO (07:54)
[2020-03-31 07:55] VITALS: BP 131/65; PULSE 59; RESP 16; TEMP 36.9; O2SAT 96; BMI 37.0
[2020-03-31] MEDS: Aspirin 81 MG TAB.CHEW PO (07:55)
[2020-03-31] MEDS: hydroCHLOROthiazide 25 MG Tablet PO (07:55)
[2020-03-31] MEDS: Famotidine 20 MG Tablet PO (07:55)
--- NOTE | 2020-03-31 09:58 | PN_ITS ---
Subjective: The patient was sitting in chair upon examination. Patient denies chest pain, shortness of breath, dizziness, lightheadedness, nausea, vomiting or calf pain. Pain is controlled on medications. No adverse events overnight. Patient states the right hip is feeling well overall. He has been up with physical therapy multiple times ambulating about the hallways. Objective: Vital signs stable. Patient is afebrile. Patient is able to plantar flex and dorsiflex actively. Sensation is intact to light touch to saphenous, sural, superficial and deep peroneal and tibial nerve distributions. Dressing is clean, dry and intact. Negative Homans bilaterally. Negative signs and symptoms of DVT. - Physical Exam Vitals/I&O's: Vital Signs Temp Pulse Resp BP Pulse Ox 98.5 F 59 L 16 131/65 H 96 03/31/20 07:55 03/31/20 07:55 03/31/20 07:55 03/31/20 07:55 03/31/20 07:55 Oxygen Flow Rate (L/min) 6 Oxygen Delivery Method Room Air Weight: 127.2 kg Body Mass Index (BMI) 37.0 Finger Stick Blood Glucose 167 Intake and Output for Last 24 Hours 03/29/20 03/30/20 03/31/20 23:59 23:59 23:59 Intake Total 5295 / 5295 502.5 / 502.5 Balance 5295 / 5295 502.5 / 502.5 General: Alert, Oriented x3, Cooperative Skin: Incision - On right thigh/hip. Psych/Mental Status: Normal Affect, Appropriate Microbiology Past 72 Hours 03/29/20 11:21 Mucosa - Nasopharyngeal Coronavirus COVID-19 PCR - Final Laboratory Results 03/30/20 09:55: POC Glucose 167 H 03/30/20 16:33: POC Glucose 273 H 03/30/20 21:38: POC Glucose 240 H 03/31/20 05:32: WBC 13.6 H, RBC 4.04 L, Hgb 12.4 L, Hct 37.0 L, MCV 91.6, MCH 30 .7, MCHC 33.5, RDW Std Deviation 43.2, RDW Coeff of Davina 12.9, Plt Count 189, MPV 10.5 03/31/20 05:32: Sodium 137, Potassium 4.5, Chloride 103, Carbon Dioxide 27.0, Anion Gap 7, BUN 19 H, Creatinine 1.03, Estim Creat Clear Calc 68.95, Est GFR (MDRD) Af Amer 90, Est GFR (MDRD) Non-Af 75, BUN/Creatinine Ratio 18.4, Glucose 153 H, Calcium 9.0 03/31/20 06:45: POC Glucose 147 H Current Medications Acetaminophen (Tylenol) 1,000 mg PO Q8 [facility] Last Admin: 03/31/20 05:18 Dose: 1,000 mg Documented by: Amlodipine Besylate (Norvasc) 5 mg PO QHS [facility] Last Admin: 03/30/20 21:40 Dose: 5 mg Documented by: Ascorbic Acid (Vitamin C) 1,000 mg PO DAILY [facility] Last Admin: 03/31/20 07:54 Dose: 1,000 mg Documented by: Aspirin (Aspirin, Baby) 81 mg PO BIDCM [facility] Last Admin: 03/31/20 07:55 Dose: 81 mg Documented by: Atenolol (Tenormin (Beta Venessa)) 25 mg PO DAILY [facility] Last Admin: 03/31/20 07:54 Dose: 25 mg Documented by: Atorvastatin Calcium (Lipitor) 40 mg PO QHS [facility] Last Admin: 03/30/20 21:40 Dose: 40 mg Documented by: Cholecalciferol (Vitamin D (25mcg)) 2,000 unit PO DAILY [facility] Last Admin: 03/31/20 07:54 Dose: 2,000 unit Documented by: Dextrose (D50w Syringe) 0 gm IV X1 PRN; Protocol PRN Reason: Hypoglycemia Enteral Nutritional Formula (Ensure Surgery) 237 ml PO TIDCM [facility] Last Admin: 03/31/20 07:14 Dose: Not Given Documented by: Famotidine (Pepcid) 20 mg PO DAILY [facility] Last Admin: 03/31/20 07:55 Dose: 20 mg Documented by: Glucagon () 1 mg IM .X1 PRN PRN Reason: Hypoglycemia Hydrochlorothiazide (Hctz) 25 mg PO DAILY [facility] Last Admin: 03/31/20 07:55 Dose: 25 mg Documented by: Insulin Human Lispro (Humalog Kwikpen (Bkc)) 0 unit SC TIDAC [facility]; Protocol Last Admin: 03/31/20 06:50 Dose: Not Given Documented by: Ketorolac Tromethamine (Toradol (Bkc)) 15 mg IV Q6H PRN PRN PRN Reason: Pain Score 1-5/10 Stop: 04/01/20 07:12 Losartan Potassium (Cozaar) 100 mg PO DAILY [facility] Last Admin: 03/31/20 07:53 Dose: 100 mg Documented by: Meloxicam (Mobic) 7.5 mg PO BID [facility] Morphine Sulfate () 2 - 4 mg IV Q2H PRN PRN PRN Reason: Pain Score 4-10/10 Morphine Sulfate () 2 - 4 mg IV Q2H PRN PRN PRN Reason: Pain Score 4-10/10 Multivitamins (Multivitamin) 1 tablet PO DAILY@0800 [facility] Last Admin: 03/31/20 07:54 Dose: 1 tablet Documented by: Ondansetron HCl (Zofran) 4 mg IV Q8H PRN PRN PRN Reason: NAUSEA Oxycodone HCl (Oxyir) 5 - 10 mg PO Q4H PRN PRN PRN Reason: Pain Score 4-10/10 Last Admin: 03/30/20 16:43 Dose: 5 mg Documented by: Promethazine HCl (Phenergan) 12.5 mg IM Q6H PRN PRN; Protocol PRN Reason: NAUSEA/VOMITING Senna/Docusate Sodium (Senokot-S, Agnes-Colace) 2 tablet PO BID [facility] Last Admin: 03/31/20 07:55 Dose: Not Given Documented by: Sodium Chloride () 10 - 40 ml IV UD PRN PRN Reason: SALINE FLUSH Medical Necessity - Tobacco Use Smoking Status: Former smoker Tobacco Use: Non-smoker Assessment/Plan All Active Problems (Last Reviewed 06/03/19 @ 11:[address] Chet Restrepo MD) Dyspnea (Acute) Abnormal Heart Score CT (Acute) 1. Status post anterior right total hip arthroplasty post operative day #1. 2. Continue pain medications: Tylenol and OxyIR 3. DVT prophylaxis: Aspirin 81 mg twice daily and thigh-high MARLENE hose 4. PT/OT: Weightbearing as tolerated 5. H & H: 12.4/37.0, asymptomatic 6. WBCs: 18.6, afebrile, Decadron was given intraoperatively. 7. Encouraged incentive spirometry. 8. Continue postoperative medical management per medicine. 9: Postoperative drainage: Dressing is clean dry and intact. Patient may shower 24 hours postoperatively as long as dressing is dry and intact to the skin. May remove the dressing 5 days after surgery. The incision may be cleaned with gentle soap and water. 9. Disposition: The patient is orthopedically stable. The plan will be for discharge home this afternoon after physical therapy. Patient will follow-up per postop instructions. Prescriptions will be sent to [facility] in [place]. The patient is scheduled to begin outpatient physical therapy on April 01, 2020 at 9:00 AM at [facility] with Juju. His follow-up appointment is scheduled with Adrien Larson on April 13, 2020 at 9 AM at the [facility] office in [place].
--- NOTE | 2020-03-31 10:14 | PCM.DC.THR ---
Discharge Activity: May Not Drive - while taking narcotic pain medications. May shower in (days): 1 - only if incision is dry and without drainage. Do NOT soak/submerge in tub/pool/[place]/stream/hot tub. Weight Bearing Status: Weight bearing as tolerated Elevate: Operative Extremity Additional Activity Instructions:: Wear elastic stockings for 2 weeks. DO NOT use alcohol with narcotic pain medication. DO NOT make important decisions while taking narcotic medication. If you have problems with taking your medication (rash, itching, nausea, etc.) call the office at once. Call your doctor if your incision/area has: Increased Pain/ Swelling, Increased Redness, Foul Smelling Discharge Call your doctor if you observe: Fever of 101 or Higher Remove Dressing in (days):: 5 Cleanse incision/area with: Soap & Water Allergies/Adverse Reactions: Allergies No Known Allergies Allergy (Verified 03/24/20 11:05) Medications to take at Discharge ascorbic acid (vitamin C) 1,000 mg tablet 1 g PO DAILY tab 06/02/19 atenolol 25 mg tablet 25 mg PO DAILY 06/02/19 biotin 1 mg capsule 1 mg PO DAILY 06/02/19 cholecalciferol (vitamin D3) 50 mcg (2,000 unit) capsule 2,000 unit PO DAILY 06/02/19 cyanocobalamin (vitamin B-12) 1,000 mcg capsule 1,000 mcg PO DAILY 06/02/19 losartan 100 mg-hydrochlorothiazide 25 mg tablet 1 tab PO DAILY 06/02/19 multivitamin 1 tab PO DAILY 06/02/19 omega-3 fatty acids 1,000 mg capsule 1,000 mg PO DAILY 06/02/19 rosuvastatin 20 mg tablet 20 mg PO DAILY 06/02/19 Amlodipine [Norvasc] 5 mg PO DAILY 03/24/20 Flaxseed Oil 1,000 mg PO DAILY 03/24/20 Acetaminophen [Tylenol] 1,000 mg PO Q8 30 Days #100 tab 03/31/20 Aspirin [Aspirin, Baby] 81 mg PO BIDCM 30 Days #60 tab.chew 03/31/20 Famotidine [Pepcid] 20 mg PO DAILY 30 Days #30 tab 03/31/20 Oxycodone [Oxyir] 5 - 10 mg PO Q4H PRN PRN 7 Days #30 tablet 03/31/20 Senna/Docusate Sodium [Senokot-S] 2 tab PO BID 2 Days #10 tab 03/31/20 The following prescriptions were given: Aspirin [Aspirin, Baby] 81 mg PO BIDCM 30 Days #60 tab.chew Transmission Status: Pending to [id number] Oxycodone [Oxyir] 5 - 10 mg PO Q4H PRN PRN 7 Days #30 tablet PRN Reason: Pain Score 4-10/10 Transmission Status: Sent to [facility] Famotidine [Pepcid] 20 mg PO DAILY 30 Days #30 tab Transmission Status: Pending to [facility] Senna/Docusate Sodium [Senokot-S] 2 tab PO BID 2 Days #10 tab Transmission Status: Pending to [facility] Acetaminophen [Tylenol] 1,000 mg PO Q8 30 Days #100 tab Transmission Status: Pending to [facility] Primary Care Physician: Rachel Wolfe DO [Primary Care Provider] - Test Results: Test results from this visit will be discussed in further detail at your follow-up appointment, if applicable. Please Follow Up With: Adrien Larson PA-C at [facility] When: 04/13/2020 at 09:00 am Please Follow Up With: Juju desouza PT at [facility] When: 04/01/2020 at 09:00 am
--- NOTE | 2020-03-31 10:51 | CASEMGMT ---
NELLY GARCIA Face to Face with patient for initial transition planning/care coordination assessment. RN CM introduced self and role at [facility]. Patient sitting in chair, alert and oriented. Patient willing to participate in assessment and is able to answer all questions appropriately. Care providers, pharmacy, and demographics verified. Patient wishes to discharge home, and is setup with [facility] for outpatient therapy. Patient states he has no further needs or concerns at this time. CM to follow for discharge planning needs that may arise. PCP: [facility] Specialists: juan ramon Pat; Kaye upper [employer] machine Preferred Pharmacy: [facility] Insurance: [email or web address] Prescription Benefit: yes Living Will/HPOA: yes, Mary Kate Suarez LNOK: Living Arrangements: Patient lives with in 2 story home with bed and bath on main floor. 2 steps and railing to enter the home. Patient independent at home prior to surgery Transportation: DME/HHC: Patient states he has walker and raised toilet at home. Patient is setup with [facility] outpatient therapy tomorrow. Disposition Plan: Patient to discharge home with outpatient therapy, family support, and follow-up plans in place. Laura BARNES, RN, CM
--- NOTE | 2020-03-31 11:52 | CASEMGMT ---
NELLY GARCIA completed HERNANDEZ form with patient. NELLY GARCIA explained HERNANDEZ form to patient. Patient voiced understanding and signed form. Original filed in chart. Copy of signed HERNANDEZ form provided to patient. Patient had no further needs or concerns at this time.
[2020-03-31 11:55] VITALS: BP 140/73; PULSE 54; RESP 16; TEMP 36.6; O2SAT 98
--- NOTE | 2020-03-31 12:56 | PN_ITS ---
Subjective: Feels well. Slightly more pain in right hip. No other complaints. Vitals/I&O's: Vital Signs Temp Pulse Resp BP Pulse Ox 36.6 C 54 L 16 140/73 H 98 03/31/20 11:55 03/31/20 11:55 03/31/20 11:55 03/31/20 11:55 03/31/20 11:55 Oxygen Flow Rate (L/min) 6 Oxygen Delivery Method Room Air Weight: 127.2 kg Body Mass Index (BMI) 37.0 Finger Stick Blood Glucose 167 Intake and Output for Last 24 Hours 03/29/20 03/30/20 03/31/20 23:59 23:59 23:59 Intake Total 5295 / 5295 502.5 / 502.5 Balance 5295 / 5295 502.5 / 502.5 General: Alert, No apparent distress HEENT: Atraumatic, Normocephalic Oral: Moist Mucosa, No Gingival or Mucosal Lesions/ Ulcerations Neck: No Nodes, Thyroid Normal Size and Texture Lungs: Clear to auscultation, Normal air movement, No rhonchi, No wheeze, No rales Cardiovascular: Regular rate, Regular Rhythm, Normal S1, Normal S2, No murmurs Abdomen: Bowel Sounds Present, Soft, Non Tender, Non-Distended, No Hepato- splenomegaly Extremities: No edema, No Calf Tenderness Psych/Mental Status: Normal Affect, Appropriate Microbiology Past 72 Hours 03/29/20 11:21 Mucosa - Nasopharyngeal Coronavirus COVID-19 PCR - Final Laboratory Results 03/30/20 16:33: POC Glucose 273 H 03/30/20 21:38: POC Glucose 240 H 03/31/20 05:32: WBC 13.6 H, RBC 4.04 L, Hgb 12.4 L, Hct 37.0 L, MCV 91.6, MCH 30.7, MCHC 33.5, RDW Std Deviation 43.2, RDW Coeff of Davina 12.9, Plt Count 189, MPV 10.5 03/31/20 05:32: Sodium 137, Potassium 4.5, Chloride 103, Carbon Dioxide 27.0, Anion Gap 7, BUN 19 H, Creatinine 1.03, Estim Creat Clear Calc 68.95, Est GFR (MDRD) Af Amer 90, Est GFR (MDRD) Non-Af 75, BUN/Creatinine Ratio 18.4, Glucose 153 H, Calcium 9.0 03/31/20 06:45: POC Glucose 147 H Current Medications Acetaminophen (Tylenol) 1,000 mg PO Q8 [facility] Last Admin: 03/31/20 05:18 Dose: 1,000 mg Documented by: Amlodipine Besylate (Norvasc) 5 mg PO QHS [facility] Last Admin: 03/30/20 21:40 Dose: 5 mg Documented by: Ascorbic Acid (Vitamin C) 1,000 mg PO DAILY [facility] Last Admin: 03/31/20 07:54 Dose: 1,000 mg Documented by: Aspirin (Aspirin, Baby) 81 mg PO BIDCM [facility] Last Admin: 03/31/20 07:55 Dose: 81 mg Documented by: Atenolol (Tenormin (Beta Venessa)) 25 mg PO DAILY [facility] Last Admin: 03/31/20 07:54 Dose: 25 mg Documented by: Atorvastatin Calcium (Lipitor) 40 mg PO QHS [facility] Last Admin: 03/30/20 21:40 Dose: 40 mg Documented by: Cholecalciferol (Vitamin D (25mcg)) 2,000 unit PO DAILY [facility] Last Admin: 03/31/20 07:54 Dose: 2,000 unit Documented by: Dextrose (D50w Syringe) 0 gm IV X1 PRN; Protocol PRN Reason: Hypoglycemia Enteral Nutritional Formula (Ensure Surgery) 237 ml PO TIDCM [facility] Last Admin: 03/31/20 11:40 Dose: Not Given Documented by: Famotidine (Pepcid) 20 mg PO DAILY [facility] Last Admin: 03/31/20 07:55 Dose: 20 mg Documented by: Glucagon () 1 mg IM .X1 PRN PRN Reason: Hypoglycemia Hydrochlorothiazide (Hctz) 25 mg PO DAILY [facility] Last Admin: 03/31/20 07:55 Dose: 25 mg Documented by: Insulin Human Lispro (Humalog Kwikpen (Bk)) 0 unit SC TIDAC [facility]; Protocol Last Admin: 03/31/20 06:50 Dose: Not Given Documented by: Ketorolac Tromethamine (Toradol (Bkc)) 15 mg IV Q6H PRN PRN PRN Reason: Pain Score 1-5/10 Stop: 04/01/20 07:12 Losartan Potassium (Cozaar) 100 mg PO DAILY [facility] Last Admin: 03/31/20 07:53 Dose: 100 mg Documented by: Meloxicam (Mobic) 7.5 mg PO BID [facility] Morphine Sulfate () 2 - 4 mg IV Q2H PRN PRN PRN Reason: Pain Score 4-10/10 Morphine Sulfate () 2 - 4 mg IV Q2H PRN PRN PRN Reason: Pain Score 4-10/10 Multivitamins (Multivitamin) 1 tablet PO DAILY@0800 [facility] Last Admin: 03/31/20 07:54 Dose: 1 tablet Documented by: Ondansetron HCl (Zofran) 4 mg IV Q8H PRN PRN PRN Reason: NAUSEA Oxycodone HCl (Oxyir) 5 - 10 mg PO Q4H PRN PRN PRN Reason: Pain Score 4-10/10 Last Admin: 03/30/20 16:43 Dose: 5 mg Documented by: Promethazine HCl (Phenergan) 12.5 mg IM Q6H PRN PRN; Protocol PRN Reason: NAUSEA/VOMITING Senna/Docusate Sodium (Senokot-S, Agnes-Colace) 2 tablet PO BID [facility] Last Admin: 03/31/20 07:55 Dose: Not Given Documented by: Sodium Chloride () 10 - 40 ml IV UD PRN PRN Reason: SALINE FLUSH STROKE Vital Signs/Narrative: Vital Signs Temp Pulse Resp BP Pulse Ox 03/31/20 11:55 36.6 C 54 L 16 140/73 H 98 Medical Necessity - Tobacco Use Smoking Status: Former smoker Tobacco Use: Non-smoker Assessment/Plan All Active Problems (Last Reviewed 06/03/19 @ 11:[address] Chet Restrepo MD) Dyspnea (Acute) Abnormal Heart Score CT (Acute) 1. Diabetes mellitus type 2: Diet controlled. Would expect his blood sugar to be elevated given this surgery. Put the patient on sliding scale insulin and monitor. I do not anticipate the patient requiring any medications upon discharge. 2. Hypertension: Continue with amlodipine, losartan. 3. Status post right hip replacement: Management per orthopedics 4. VTE prophylaxis: Patient is on aspirin 81 mg twice daily. Medically stable for discharge. Inpatient E&M: [id number] [facility] L2
== END 2020-03-31 12:50 | disposition home or self-care (01) ==
LOC: SDC 08:17 → MS3 08:17
PROVIDERS: Admitting Provider Specialist; PCP Internal Medicine; Referring Provider Specialist; Visit Provider Specialist
PROC: (CPT 27284; principal; 2020-03-30 07:05)
DX: M16.11 Unilateral primary osteoarthritis, right hip (principal); I10 Essential (primary) hypertension; Z87.891 Personal history of nicotine dependence; Z79.899 Other long term (current) drug therapy; Z79.82 Long term (current) use of aspirin; Z79.1 Long term (current) use of non-steroidal anti-inflammatories (NSAID); E78.5 Hyperlipidemia, unspecified; E11.9 Type 2 diabetes mellitus without complications
CPT/HCPCS: 01214; 27130; 36415; 73501; 73502; 76000; 80048; 82962; 85027; 87081; 87635; 94799; 96361; 96365; 96366; 97110; 97162; 97166; 97530; 97535; 99218; 99251; C1776; G2023; J7120; G0378; G0379; G0463; J2405; U0004

== ENCOUNTER → 2020-06-29 14:09 | Outpatient (CLI) | payer MEDICARE, SELFPAY ==
[2020-03-30 12:04] VITALS: BMI 37.0
[2020-06-28 14:17] VITALS: BMI 36.9
--- NOTE | 2020-06-29 14:13 | CT_ITS ---
STUDY: CT CHEST WITHOUT CONTRAST REASON FOR EXAM: Male, 74 years old. ABNORMAL CHEST X-RAY RADIATION DOSAGE (If Supplied By Facility): CTDIvol = ( 14.80 ) mGy, DLP = ( 576.75 ) mGycm TECHNIQUE: Transaxial imaging was performed without the administration of intravenous contrast material. Individualized dose optimization techniques were used for this CT. COMPARISON: None. FINDINGS: Hyperinflation. Increased interstitial markings in both lungs involving the upper and lower lobes. This is in keeping with scarring. Mild degree of bronchiectasis is seen in the posterior medial segment of the right lower lobe. There is no demonstrated pleural abnormality. There are calcifications of the coronary arteries. Slightly enlarged precarinal lymph node measuring 2.1 cm. This is unchanged. Normal hilar regions. Normal unenhanced pulmonary arteries. Normal aorta arch and descending thoracic aorta. There are multi-level degenerative changes of the thoracic spine. Inhomogeneous appearance of the superior aspect of the left lobe of the liver extending into the region of the kosta hepatis with enlargement of the caudate lobe. A CT scan of the abdomen with oral and IV contrast is recommended. CT/Chest without Contrast IMPRESSION: Findings suggestive of emphysematous changes with scarring in both lungs as described. Inhomogeneous appearance of the liver as described. Correlation with pain CT scan of the abdomen and pelvis is recommended for further evaluation. Electronically Signed: Won Rebolledo, at 14:41 EDT , Service support ,
== END ==
PROVIDERS: PCP Internal Medicine; Referring Provider Internal Medicine; Visit Provider Internal Medicine
DX: R93.89 Abnormal findings on diagnostic imaging of other specified body structures (principal)
CPT/HCPCS: 71250

== ENCOUNTER → 2020-07-06 13:42 | Outpatient (CLI) | payer MEDICARE, SELFPAY ==
[2020-06-28 14:17] VITALS: BMI 36.9
--- NOTE | 2020-07-06 13:43 | ECHOCS_ITS ---
Reason For Study: DYSPNEA Left Ventricle Normal LV size. Left ventricular systolic function is normal. The estimated ejection fraction is 65 %. Stage 1 diastolic dysfunction. No regional wall motion abnormalities noted. Right Ventricle Normal RV size. Normal systolic function. Atria The left atrium is mildly enlarged. Normal right atrium. Tricuspid Valve Normal tricuspid valve. Great Vessels Mildly dilated aortic root. The pulmonary artery is normal size. Normal inferior vena cava. Pericardium/Pleural No pericardial effusion. Medication 22 gauge I.V. with prn adaptor inserted into right arm. Diluted definity 3.0ml given slow IV push to enhance endocardial definition. MMode/2D Measurements & Calculations LVIDd: 4.6 cm IVSd: 1.2 cm Ao root diam: 4.2 cm LVIDs: 3.3 cm LVPWd: 1.2 cm RVDd: 3.7 cm FS: 27.4 % LAV(MOD-bp): 67.7 ml SV(MOD-sp4): 100.4 ml LVAd ap4: 41.3 cm2 LAV(MOD-bp) Indexed: 27.9 ml/m2 EDV(MOD-sp4): 155.0 ml LAV(MOD-sp2): 64.2 ml EDV(sp4-el): 161.7 ml LAV(MOD-sp4): 62.1 ml LVAs ap4: 21.4 cm2 ESV(MOD-sp4): 54.6 ml ESV(sp4-el): 56.9 ml EF(MOD-sp4): 64.8 % EF(sp4-el): 64.8 % SV(sp4-el): 104.9 ml LA A4 area: 23.6 cm2 LA dimension(2D): 4.2 cm RA A4 area: 17.0 cm2 Time Measurements MV dec time: 0.54 sec Doppler Measurements & Calculations MV E max bhupinder: 50.7 cm/sec Lat Peak E' Bhupinder: 8.9 cm/sec Med Peak E' Bhupinder: 6.1 cm/sec MV A max bhupinder: 92.2 cm/sec E/E' lat: 5.7 E/E' med: 8.3 MV E/A: 0.55 Ao V2 max: 147.2 cm/sec LV V1 max: 131.5 cm/sec PA V2 max: 155.8 cm/sec Ao max P.7 mmHg LV V1 max P.9 mmHg Interpretation Summary Normal LV size. Left ventricular systolic function is normal. The estimated ejection fraction is 65 %. Stage 1 diastolic dysfunction. Contrast injection was performed. Ordering Physician: Chet Restrepo Referring Physician: ANUP CHILD Performed By: Juliana Eli, ELSIE, RVT
== END ==
PROVIDERS: PCP Internal Medicine; Referring Provider Internal Medicine Cardiovascular Disease; Visit Provider Internal Medicine Cardiovascular Disease
DX: R06.02 Shortness of breath (principal); R06.00 Dyspnea, unspecified
CPT/HCPCS: 93306; Q9957; A4216; C8929

== ENCOUNTER → 2020-07-14 08:07 | Outpatient (CLI) | payer MEDICARE, SELFPAY ==
[2020-06-28 14:17] VITALS: BMI 36.9
--- NOTE | 2020-07-14 08:09 | CT_ITS ---
STUDY: CT ABDOMEN AND PELVIS WITH AND WITHOUT CONTRAST REASON FOR EXAM: Male, [address] CHEST---ATTN LIVER -- +DIAB/HTN RADIATION DOSAGE (If Supplied By Facility): CTDIvol = ( 26.20 ) mGy, DLP = ( 3238.82 ) mGycm TECHNIQUE: Transaxial images were obtained from the dome of the diaphragm to the symphysis pubis without oral contrast. Oral Readi-CAT was administered. Sagittal and coronal images were reconstructed. Individualized dose optimization techniques were used for this CT. COMPARISON: None. FINDINGS: Mild increased markings at the lung bases suggestive of scarring. Pleural parenchymal scarring along the posterior medial segment of the right lower lobe. Coronary artery calcification. Diffuse fatty infiltration of the liver. Segmental region of decreased attenuation in the medial aspect of the right lobe of the liver with enlargement of the caudate lobe. This appears to be an infiltrative process. Correlation with MRI is recommended for further evaluation. Normal gallbladder and extrahepatic biliary system. Normal spleen. Normal pancreas. Normal bilateral adrenal glands. 2.5 mm calculus in the midportion of the left kidney. There is a 5.1 mm calculus in the upper pole calyx of the left kidney. This is also evidence of a 4 mm calculus in the posterior lower pole calyx of left kidney. Mild degree of nonspecific specific bilateral perinephric stranding. Normal visualized stomach. Small duodenal diverticulum in the second portion. Normal colon. The appendix is visualized and appears normal. There is diffuse atherosclerotic calcification of the abdominal aorta and major visceral branches, without a demonstrated aneurysm. Normal inferior vena cava. Normal retroperitoneum. Bladder wall thickening although the bladder is not completely distended. There are prostatic calcifications. Normal abdominal wall. There are diffuse degenerative changes of the visualized lumbar spine. CT/CT Abd/Pelvis W/WO Contrast IMPRESSION: Heterogeneous appearance of a fatty infiltrated liver involving the medial aspect of the right lobe of the liver as described. Correlation with MRI is recommended. Electronically Signed: Won Rebolledo, at 9:29 EDT , Service support ,
== END ==
PROVIDERS: PCP Internal Medicine; Referring Provider Internal Medicine; Visit Provider Internal Medicine
DX: R93.89 Abnormal findings on diagnostic imaging of other specified body structures (principal)
CPT/HCPCS: 74178; Q9967

== ENCOUNTER → 2020-07-25 10:58 | Outpatient (CLI) | payer MEDICARE, SELFPAY ==
[2020-06-28 14:17] VITALS: BMI 36.9
--- NOTE | 2020-07-25 11:02 | MRI_ITS ---
STUDY: MRI ABDOMEN WITH AND WITHOUT CONTRAST REASON FOR EXAM: Male, 74 years old. ATTN: LIVER -- F/U to Abnormal CT, fatty liver, right lobe. No pain TECHNIQUE: Standardized fat and water weighted pulse sequences were obtained in all 3 orthogonal planes post contrast administration. IV Yes YES was administered for the contrast portion of the examination. COMPARISON: CT 07/14/2020 FINDINGS: The visualized lung bases are unremarkable. The visualized portions of the heart are within normal limits. Heterogeneous intensity of the hepatic parenchyma with large areas of varying intensity consistent with fatty infiltration. This is most severe within the medial segment the left lobe of the liver including posteriorly adjacent to the gallbladder, superior posterior segment the right lobe of the liver and lateral segment left lobe of the liver. These areas contain normal in course living blood vessels without mass effect consistent with fatty infiltration. No discrete enhancing mass is identified. Normal gallbladder and extrahepatic biliary system. Normal spleen. Normal pancreas. Normal bilateral adrenal glands. Normal right kidney. Normal left kidney. Normal visualized stomach. Small diverticulum of the second portion the duodenum near the ampulla. Normal colon. There is non-visualization of the appendix. Normal abdominal aorta. Normal inferior vena cava. Normal retroperitoneum. Normal abdominal wall. Normal osseous structures. MRI/MRI Abd WITH and W/O Contrast IMPRESSION: Fatty infiltration liver corresponding to the abnormality seen on CT. Electronically Signed: Jamal Barajas MD at 12:29 EDT Tel , Service support ,
--- NOTE | 2020-07-25 12:29 | US_ITS ---
STUDY: ULTRASOUND - URINARY BLADDER REASON FOR EXAM: Male, [address] BLADDER WALL THICKENING TECHNIQUE: Ultrasound evaluation of the urinary bladder was performed with real-time and static ro-scale imaging. COMPARISON: CT 07/14/2020 FINDINGS: There is no right UVJ calculus. There is a visualized right ureteral jet. There is no left UVJ calculus. There is a visualized left ureteral jet. The distended volume of the urinary bladder is 152 ml. The empty volume of the urinary bladder is 38 ml. The bladder wall is diffusely thickened. The bladder wall measures 6 mm thick. There is no demonstrated bladder wall mass lesion. There are no demonstrated bladder calculi. US/Post Void Residual Bladder IMPRESSION: Diffuse bladder wall thickening. Electronically Signed: Jamal Barajas MD at 14:06 EDT Tel , Service support ,
== END ==
PROVIDERS: PCP Internal Medicine; Referring Provider Internal Medicine; Visit Provider Internal Medicine
DX: R93.2 Abnormal findings on diagnostic imaging of liver and biliary tract (principal); N32.89 Other specified disorders of bladder; R39.89 Other symptoms and signs involving the genitourinary system
CPT/HCPCS: 51798; 74183; A9575

== ENCOUNTER → 2020-12-30 08:13 | Outpatient (CLI) | payer MEDICARE, SELFPAY ==
[2020-06-28 14:17] VITALS: BMI 36.9
--- NOTE | 2020-12-30 08:15 | CT_ITS ---
STUDY: CT CHEST WITHOUT CONTRAST REASON FOR EXAM: Male, 75 years old. LNG NODULE RADIATION DOSAGE (If Supplied By Facility): CTDIvol = ( 19.67 ) mGy, DLP = ( 894.37 ) mGycm TECHNIQUE: Transaxial imaging was performed without the administration of intravenous contrast material. Multiplanar coronal and sagittal images were reformatted. Individualized dose optimization techniques were used for this CT. COMPARISON: Comparison is made with prior study dated 06/29/2020. FINDINGS: Stable increased interstitial markings in both lungs involving both the lower and upper lobes. This is in keeping with scarring. Stable focal area of bronchiectasis in the posterior medial segment of the right lower lobe. There is no demonstrated pleural abnormality. There are calcifications of the coronary arteries. 1.6 cm lymph node in the precarinal region. Normal hilar regions. Normal unenhanced pulmonary arteries. There is atherosclerotic calcification of the aortic arch with tortuosity and elongation of the aortic arch and descending thoracic aorta. There are multi-level degenerative changes of the thoracic spine. Stable appearance of the left lobe of the liver. Nonobstructive intrarenal calculi. CT/Chest without Contrast IMPRESSION: Stable examination. Electronically Signed: Won Rebolledo MD at 10:20 EST , Service support ,
== END ==
PROVIDERS: PCP Internal Medicine; Referring Provider Internal Medicine Pulmonary Disease; Visit Provider Internal Medicine Pulmonary Disease
DX: R91.1 Solitary pulmonary nodule (principal)
CPT/HCPCS: 71250

== ENCOUNTER → 2021-02-24 11:43 | Outpatient (CLI) | payer MEDICARE, SELFPAY ==
[2020-06-28 14:17] VITALS: BMI 36.9
[2021-02-24 13:30] LABS: AST(SGOT) 29 U/L (15-37); Alanine Aminotransfer ALT/SGPT 32 U/L (16-61); Albumin, Serum 3.9 g/dL (3.2-5.0); Alkaline Phosphatase 91 U/L (45-117); Bilirubin, Direct 0.22 mg/dL (0.00-0.30); Globulin 3.9 g/dL (2.2-4.2); Protein, Total 7.8 g/dL (6.4-8.2)
== END ==
PROVIDERS: PCP Internal Medicine; Referring Provider Internal Medicine Pulmonary Disease; Visit Provider Internal Medicine Pulmonary Disease
DX: J84.10 Pulmonary fibrosis, unspecified (principal)
CPT/HCPCS: 36415; 80076

== ENCOUNTER 2021-06-23 09:55 | Outpatient (RCR) | payer MEDICARE, SELFPAY ==
[2021-06-23 10:47] LABS: AST(SGOT) 29 U/L (15-37); Alanine Aminotransfer ALT/SGPT 32 U/L (16-61); Albumin, Serum 3.9 g/dL (3.2-5.0); Alkaline Phosphatase 89 U/L (45-117); Bilirubin, Direct 0.27 mg/dL (0.00-0.30); Protein, Total 7.9 g/dL (6.4-8.2)
== END 2021-06-23 18:00 | disposition home or self-care (01) ==
LOC: LAB 09:55
PROVIDERS: PCP Internal Medicine; Visit Provider Internal Medicine Pulmonary Disease
DX: J84.10 Pulmonary fibrosis, unspecified (principal); Z79.899 Other long term (current) drug therapy
CPT/HCPCS: 36415; 80076

== ENCOUNTER → 2021-07-11 08:25 | Outpatient (CLI) | payer MEDICARE, SELFPAY ==
[2020-06-28 14:17] VITALS: BMI 36.9
--- NOTE | 2021-07-11 08:30 | CT_ITS ---
STUDY: CT CHEST WITHOUT CONTRAST REASON FOR EXAM: Male, 75 years old. Follow-up examination for pulmonary nodule. Patient has a history of interstitial fibrosis and former smoker. RADIATION DOSAGE (If Supplied By Facility): CTDIvol = ( 19.38 ) mGy, DLP = ( 731.38 ) mGycm TECHNIQUE: Transaxial imaging was performed without the administration of intravenous contrast material. Multiplanar coronal and sagittal images were reformatted. Individualized dose optimization techniques were used for this CT. COMPARISON: Comparison is made with prior study dated 12/30/2020. FINDINGS: Hyperinflation. Stable increased interstitial pal in both lungs involving both the upper and lower lobes in comparison with scarring. Stable focal area of bronchiectasis in the posterior medial segment of the right lower lobe. There is no demonstrated pleural abnormality. There are calcifications of the coronary arteries. Multiple small mediastinal lymph nodes. The largest is in the precarinal space and measures 2.4 cm. Normal hilar regions. Normal unenhanced pulmonary arteries. There is atherosclerotic calcification of the aortic arch with tortuosity and elongation of the aortic arch and descending thoracic aorta. There are multi-level degenerative changes of the thoracic spine. Stable appearance of the left lobe liver suggestive of fatty infiltration. CT/Chest without Contrast IMPRESSION: Stable examination. Electronically Signed: Won Rebolledo MD at 10:18 EDT , Service support ,
== END ==
PROVIDERS: PCP Internal Medicine; Referring Provider Internal Medicine Pulmonary Disease; Visit Provider Internal Medicine Pulmonary Disease
DX: R91.1 Solitary pulmonary nodule (principal); J84.112 Idiopathic pulmonary fibrosis
CPT/HCPCS: 71250

== ENCOUNTER 2021-07-31 11:51 | Outpatient (RCR) | payer MEDICARE, SELFPAY ==
[2021-07-31 15:30] LABS: AST(SGOT) 26 U/L (15-37); Alanine Aminotransfer ALT/SGPT 33 U/L (16-61); Albumin, Serum 3.7 g/dL (3.2-5.0); Alkaline Phosphatase 86 U/L (45-117); Bilirubin, Direct 0.19 mg/dL (0.00-0.30); Globulin 4.1 g/dL (2.2-4.2); Protein, Total 7.8 g/dL (6.4-8.2)
== END 2021-07-31 18:00 | disposition home or self-care (01) ==
LOC: LAB 11:51
PROVIDERS: PCP Internal Medicine; Referring Provider Internal Medicine Pulmonary Disease; Visit Provider Internal Medicine Pulmonary Disease
DX: J84.10 Pulmonary fibrosis, unspecified (principal); Z79.899 Other long term (current) drug therapy
CPT/HCPCS: 36415; 80076

== ENCOUNTER → 2022-05-02 | Outpatient (CLI) | payer MEDICARE, SELFPAY ==
--- NOTE | 2022-05-02 10:17 | US_ITS ---
STUDY: LIMITED RIGHT UPPER QUADRANT ABDOMINAL ULTRASOUND EXAMINATION OF 1029 HOURS ON 05/02/2022 REASON FOR VISIT: 76-year-old male with right upper quadrant discomfort. TECHNIQUE: Ultrasound evaluation of the right upper quadrant was performed with real-time and static ro-scale imaging. TECHNICAL QUALITY: Adequate. COMPARISON: None. FINDINGS: A normal sized liver is noted with mild to moderate fatty infiltration. There is no hepatic cystic or solid mass lesions. Normal portal and hepatic venous blood flow. Normal size gallbladder with sludge or gravel in the gallbladder, but no evidence of significant size gallstones. There is a negative Betancourt''s sign over the gallbladder. There is no dilatation. Biliary system or common bile duct, which measures 4 mm at its greatest diameter. The pancreas is poorly visualized secondary to intestinal gas. There is mild increased echogenicity of the visualized portions of the pancreas. The right kidney measures 12.3 cm x 5.0 cm x 4.8 cm. There is a normal-appearing right renal cortex, measuring 1.2 cm in thickness. There is an echogenic focus and a midpole calyx of the right kidney--felt to represent a 6 mm calcification or calculus. No obstructive uropathy. There is no evidence of ascites or right pleural fluid. US/Abdomen Limited IMPRESSION: 1. Normal size liver with mild to moderate fatty infiltration. 2. No hepatic cystic or solid mass lesions. Normal portal and hepatic venous blood flow. 3. Normal size gallbladder with sludge or gravel in the gallbladder, but no evidence of significant size gallstones. Negative Betancourt sign of the gallbladder. 4. No dilatation intraventricular system or common bile duct, which measures 4 mm at its greatest diameter. 5. Pancreas is poorly visualized secondary to intestinal gas. There is a mild increased echogenicity in the visualized portions of the pancreas. 6. Normal right kidney with a 6 mm calcification calculus or recently admitted to [facility]. Normal renal cortical thickness. No obstructive uropathy. 7. No ascites or right pleural fluid. Electronically Signed: Trey Simon MD at 20:17 EDT ,
== END | disposition home or self-care (01) ==
LOC: US 10:12
PROVIDERS: PCP Internal Medicine; Visit Provider Internal Medicine
DX: K76.0 Fatty (change of) liver, not elsewhere classified (principal)
CPT/HCPCS: 76705

== ENCOUNTER → 2022-07-31 | Outpatient (CLI) | payer MEDICARE, SELFPAY ==
--- NOTE | 2022-07-31 09:22 | US_ITS ---
STUDY: ABDOMINAL ULTRASOUND - ELASTOGRAPHY REASON FOR VISIT: Male, 76 years old. Fatty infiltration of the liver. TECHNIQUE: Liver stiffness measurements were obtained on a [employer] RS 85 ultrasound machine using a CA 1-7 probe following the SRU guidelines. 3 measurements were obtained using a 2-D-SWE method. The IQR/M was 21% suggesting a quality data set. TECHNICAL QUALITY: Adequate. COMPARISON: Comparison is made with prior study dated 05/02/2022. FINDINGS: Liver: Fatty infiltration of the liver. Median liver stiffness measured 9.2 kPa. US/Elastography Parenchyma/Organ IMPRESSION: Liver stiffness measures 9.2 kPa compatible with F2-F3 (Mild to moderate liver fibrosis) Metavir score. Electronically Signed: Won Rebolledo MD at 10:48 EDT ,
== END | disposition home or self-care (01) ==
LOC: US 09:20
PROVIDERS: PCP Internal Medicine; Referring Provider Nurse Practitioner Adult Health; Visit Provider Nurse Practitioner Adult Health
DX: R06.00 Dyspnea, unspecified (principal)
CPT/HCPCS: 76981

== ENCOUNTER 2022-09-06 05:49 | Day surgery (SDC) | payer MEDICARE, SELFPAY ==
[2022-09-06] VITALS (7 sets, daily range): BP systolic 91–150; BP diastolic 52–72; PULSE 57–66; RESP 16–18; TEMP 36.8–37.1; O2SAT 96–99; BMI 33.6
[2022-09-06] MEDS: Lactated Ringers 1,000 ML 15 ML IV (06:33)
--- NOTE | 2022-09-06 07:00 | COLBX_PTH ---
PATIENT: RANI VELASCO Jr. LOC: EN U#:[id number] AGE/SX: 76/M ROOM: RE09/06/[address]: Dr. Donnie Wilson DO : 1945 BED: DIS: 09/06/2022 SPEC #: [id number] RECD: 09/06/22 10:08 STATUS: CATRINA STONE #: [id number] RICHARD: 09/06/22 07:[address]: Donnie Wilson DEPT: SURGICAL PATHOLOGY RECD BY: Tiffanie Chow ENTERED: 09/06/22 11:03 SP TYPE: COLON BX OTHR DR: Dr. Rachel Wolfe DO Tissues: A - Cecum, NOS B - Ileum, NOS C - Sigmoid colon biopsy Procedures: Surgery Specimen Level IV HEADER OPERATION: Colonoscopy (MAC) with biopsies PRE-OP DIAGNOSIS: Colon polyps, fatty liver TISSUE SUBMITTED: A ? Cecum biopsy, B ? Terminal ileum biopsy, C ? Sigmoid colon polyp biopsy MICROSCOPIC DIAGNOSIS A. Cecum, biopsy: No pathologic change. B. Terminal ileum, biopsy: No pathologic change. C. Sigmoid colon polyp, biopsy: Tubular adenoma. AM:xavier 09/07/2022 MICROSCOPIC DESCRIPTION Slides are reviewed. GROSS DESCRIPTION A - Received in fixative is one container labeled with the patient's name and designated cecum biopsy. The specimen consists of multiple irregular fragments of light cruz soft tissue that in aggregate measure 0.8 x 0.5 x 0.1 cm. The specimen is totally submitted in one cassette. B - Received in fixative is one container labeled with the patient's name and designated terminal ileum. The specimen consists of multiple irregular fragments of light cruz soft tissue that in aggregate measure 0.8 x 0.6 x 0.1 cm. The specimen is totally submitted in one cassette. C - Received in fixative is one container labeled with the patient's name and designated sigmoid colon polyp biopsy. The specimen consists of two irregular fragments of light cruz soft tissue that in aggregate measure 0.3 x 0.3 x 0.1 cm. The specimen is totally submitted in one cassette. / AM:xavier 09/06/2022 TC:5 CPT: 24669 x3
--- NOTE | 2022-09-06 07:04 | PCM.HP.BLA ---
History and Physical Date of Admission: 09/06/22 76 M who presents to the office today for wants to schedule a screening colonoscopy. He reports a lifetime total of 6 colonoscopies; on the first 5 colonoscopies he had polyps; his most recent colonoscopy was about 8 yrs ago, no polyps on that one which he finds suspicious, so he is anxious to get an updated colonoscopy done. No bowel complaints other than being more gassy this year. Takes a stool softener and metamucil to help bowels move. No melena or hematochezia. No diarrhea. He has no upper GI complaints. Denies nausea, vomiting, heartburn, acid reflux. No abdominal pain. Has fatty liver seen on recent US. Brother had alcoholic cirrhosis. 05/02/22 US/Abdomen Limited IMPRESSION: 1.? Normal size liver with mild to moderate fatty infiltration. 2.? No hepatic cystic or solid mass lesions.? Normal portal and hepatic venous blood flow. 3.? Normal size gallbladder with sludge or gravel in the gallbladder, but no evidence of significant size gallstones.? Negative Betancourt sign of the gallbladder. 4.? No dilatation intraventricular system or common bile duct, which measures 4 mm at its greatest diameter. 5.? Pancreas is poorly visualized secondary to intestinal gas.? There is a mild increased echogenicity in the visualized portions of the pancreas. 6.? Normal right kidney with a 6 mm calcification calculus or recently admitted to [facility].? Normal renal cortical thickness.? No obstructive uropathy. 7.? No ascites or right pleural fluid. ? ROS Const Constitutional: No fatigue, fever(s), frequent falls, headache(s) or weight change ENT ENT: No headache(s) or difficulty swallowing Cardio Cardiology: No leg pain with exertion Gastro GI: Positive for excessive flatus; No abdominal pain, bloating, change in bowel habits, constipation, diarrhea, heartburn, difficulty swallowing, Vomiting blood/hematemesis, Blood in stool, nausea/dyspepsia or vomiting Musc Musculoskeletal: No abnormal gait, joint pain, back pain, joint swelling, muscle cramps, muscle weakness, numbness, stiffness, tingling, Arthritis, sciatica, leg pain at night or leg pain with exertion Skin Skin: No dry skin, lesions, itchy eyes or rash Neuro Neurology: No abnormal gait, dizziness, frequent falls, headache(s), numbness, tingling, tremor(s), Increased tone in limbs, paralysis or seizures Psych Psychiatric: No anxiety, No depression, No paranoia, No Behavioral Problems, No Compulsive Behavior, No hyperactivity, No inattentiveness, No obsessions/compulsions, Positive for Temper Tantrums and No suicidal ideation Endo Endocrine: No fatigue or weight change Aller/Imm Allergy/Immunologic: No itchy eyes Prudencio/Lymp Hematologic/Lymphatic: No easy bleeding or easy bruising Exam Const General: cooperative, comfortable and no acute distress Orientation: alert, awake and oriented x3 HENMT Head: normal to inspection Eyes General: appearance normal, both eyes and all related structures Resp Effort & Inspection: normal respiratory effort Skin General: no jaundice Quality Reporting Tobacco Screening ([facility] 138) Smoking Status: Former smoker Assessment and Plan Assessment and Plan (1) Colon polyps: ?Status:?Acute ?Plan: Hx of colon polyps. Will schedule him for screening colonoscopy, with f/u 2 wks later in office to discuss results. (2) Fatty liver: ?Status:?Acute ?Plan: Discussed fatty liver, will get liver elastography to evaluate for fibrosis ? ? ? Orders: Orders Abdomen Limited Today R06.00 - Dyspnea, unspecified ? Elastography Parenchyma/Organ Today ? ? I have examined the patient and the H&P has been reviewed. There are no clinical changes since date of exam.
--- NOTE | 2022-09-06 07:54 | OP.COLON_ITS ---
Patient Name: Carlos Suarez Procedure Date: 09/06/2022 7:04 AM Date of : 1945 Age: 76 Procedure: Colonoscopy Indications: Follow-up for history of adenomatous polyps in the colon Providers: Donnie Wilson DO Medicines: Monitored Anesthesia Care Patient Profile: This is a 76 year old male. Refer to note in patient chart for documentation of history and physical. Last Colonoscopy: several years ago. Complications: No immediate complications. Procedure: Pre-Anesthesia Assessment: - Prior to the procedure, a History and Physical was performed, and patient medications and allergies were reviewed. The patient is competent. The risks and benefits of the procedure and the sedation options and risks were discussed with the patient. All questions were answered and informed consent was obtained. Patient identification and proposed procedure were verified by the physician in the pre-procedure area. Mental Status Examination: alert and oriented. Airway Examination: normal oropharyngeal airway and neck mobility. Respiratory Examination: clear to auscultation. CV Examination: normal. Prophylactic Antibiotics: The patient does not require prophylactic antibiotics. Prior Anticoagulants: The patient has taken no previous anticoagulant or antiplatelet agents. ASA Grade Assessment: II - A patient with mild systemic disease. After reviewing the risks and benefits, the patient was deemed in satisfactory condition to undergo the procedure. The anesthesia plan was to use monitored anesthesia care (MAC). Immediately prior to administration of medications, the patient was re-assessed for adequacy to receive sedatives. The heart rate, respiratory rate, oxygen saturations, blood pressure, adequacy of pulmonary ventilation, and response to care were monitored throughout the procedure. The physical status of the patient was re-assessed after the procedure. After I obtained informed consent, the scope was passed under direct vision. Throughout the procedure, the patient's blood pressure, pulse, and oxygen saturations were monitored continuously. The colonoscope was introduced through the anus and advanced to the terminal ileum. The colonoscopy was performed without difficulty. The patient tolerated the procedure well. The quality of the bowel preparation was good. Scope In: 7:18:07 AM Scope Withdrawal Time 0 hours 20 minutes 11 seconds Scope Out: 7:43:16 AM Total Procedure Duration Time 0 hours 25 minutes 9 seconds Findings: A 5 mm polyp was found in the sigmoid colon. The polyp was sessile. The polyp was removed with a cold snare. Resection and retrieval were complete. Verification of patient identification for the specimen was done. Estimated blood loss was minimal. An area of mildly congested mucosa was found in the ascending colon and in the cecum. Biopsies were taken with a cold forceps for histology. Verification of patient identification for the specimen was done. Estimated blood loss was minimal. A diffuse area of mucosa in the terminal ileum was nodular. Biopsies were taken with a cold forceps for histology. Verification of patient identification for the specimen was done. Estimated blood loss was minimal. Impression: - One 5 mm polyp in the sigmoid colon, removed with a cold snare. Resected and retrieved. - Congested mucosa in the ascending colon and in the cecum. Biopsied. - Nodular ileal mucosa. Biopsied. The differential diagnosis does include nodular lymphoid hyperplasia which is typically a benign condition. Recommendation: - Discharge patient to home. - Resume previous diet. - Continue present medications. - Await pathology results. - Repeat colonoscopy in 5 years for surveillance. - Return to GI office. -Stool studies for Giardia, IgG, IgE, IgA, IgM levels, ESR, CRP and possible capsule endoscopy depending on the pathology. Procedure Code(s): --- Professional --- 38794, Colonoscopy, flexible; with removal of tumor(s), polyp(s), or other lesion(s) by snare technique 11557, 59, Colonoscopy, flexible; with biopsy, single or multiple CPT copyright 2017 [employer]. All rights reserved. The codes documented in this report are preliminary and upon cushion installer review may be revised to meet current compliance requirements. Donnie Wilson DO 09/06/2022 7:53:39 AM This report has been signed electronically. Number of Addenda: 0 Note Initiated On: 09/06/2022 7:04 AM
--- NOTE | 2022-09-06 07:54 | OP.CCLET_ITS ---
09/06/2022 Rachel Wolfe Re : Colonoscopy procedure for Carlos Wolfe This procedure was performed on September. My impressions and recommendations are as follows: Impressions : - One 5 mm polyp in the sigmoid colon, removed with a cold snare. Resected and retrieved. - Congested mucosa in the ascending colon and in the cecum. Biopsied. - Nodular ileal mucosa. Biopsied. The differential diagnosis does include nodular lymphoid hyperplasia which is typically a benign condition. Recommendations : - Discharge patient to home. - Resume previous diet. - Continue present medications. - Await pathology results. - Repeat colonoscopy in 5 years for surveillance. - Return to GI office. -Stool studies for Giardia, IgG, IgE, IgA, IgM levels, ESR, CRP and possible capsule endoscopy depending on the pathology. My findings are described in the full procedure note, which is enclosed. If I can be of further assistance, please feel free to contact me at . Sincerely, Donnie Wilson, 09/06/2022 7:53:39 AM This report has been signed electronically.
== END 2022-09-06 08:31 | disposition home or self-care (01) ==
LOC: EN 05:49 → AC 05:50
PROVIDERS: PCP Internal Medicine; Referring Provider Internal Medicine; Visit Provider Internal Medicine Gastroenterology
PROC: 0DJD8ZZ Inspection of Lower Intestinal Tract, Via Natural or Artificial Opening Endoscopic (ICD-10-PCS; CPT 45378; principal; 2022-09-06 06:55)
DX: D12.5 Benign neoplasm of sigmoid colon (principal); K76.0 Fatty (change of) liver, not elsewhere classified; K63.89 Other specified diseases of intestine; I25.10 Atherosclerotic heart disease of native coronary artery without angina pectoris; I10 Essential (primary) hypertension; R91.1 Solitary pulmonary nodule; E55.9 Vitamin D deficiency, unspecified; Z79.899 Other long term (current) drug therapy; Z87.891 Personal history of nicotine dependence; Z86.010 Personal history of colon polyps
CPT/HCPCS: 45385; 45380; 88305; J7120; J2405

== ENCOUNTER → 2022-11-08 | Outpatient (CLI) | payer MEDICARE, SELFPAY ==
[2022-11-08 15:00] LABS: Erythrocyte Sedimentation Rate 21 mm/hr (0-20)
[2022-11-08 15:11] LABS: CRP 4.38 mg/L (0.0-3.0)
[2022-11-15 10:08] LABS: Immunoglobulin A 186 mg/dL (61-437); Immunoglobulin G 1140 mg/dL (603-1613); Immunoglobulin M 93 mg/dL (15-143)
[2022-11-15 21:50] LABS: Immunoglobulin E 608 IU/mL (6-495)
== END | disposition home or self-care (01) ==
LOC: LAB 13:31
PROVIDERS: PCP Internal Medicine; Referring Provider Nurse Practitioner Adult Health; Visit Provider Nurse Practitioner Adult Health
DX: K52.9 Noninfective gastroenteritis and colitis, unspecified (principal)
CPT/HCPCS: 36415; 82784; 82785; 85652; 86140

== ENCOUNTER → 2023-02-07 | Outpatient (CLI) | payer MEDICARE, SELFPAY ==
--- NOTE | 2023-02-07 07:44 | US_ITS ---
STUDY: ABDOMINAL ULTRASOUND - RIGHT UPPER QUADRANT REASON FOR VISIT: Male, 77 years old fatty liver TECHNIQUE: Ultrasound evaluation of the right upper quadrant was performed with real-time and static ro-scale imaging. TECHNICAL QUALITY: Adequate. COMPARISON: Comparison is made with prior study dated May 02, 2022. FINDINGS: Liver: The liver measures 15.9 cm. There is increased echogenicity consistent with fatty infiltration. The bile ducts are within normal limits. There is hepatic color flow. The direction of portal flow is hepatopetal. There is no demonstrated mass lesion. Gallbladder: Normal distended gallbladder. The gallbladder wall measures 2.5 mm. There is a negative sonographic Betancourt''s sign. There is no pericholecystic fluid. There are no gallstones. Common Bile Duct (C.B.D.): The common bile duct measures 6 mm. Pancreas: There is nonvisualization of the pancreas due to overlying bowel gas. Right Kidney: Normal size of the right kidney. The right kidney measures 12.3 cm x 5 cm x 5.4 cm. Normal renal cortex. The right cortex measures 1.4 cm. There is no demonstrated renal mass or cyst. There is no right hydronephrosis. There is a 9 mm x 7 mm x 5 mm nonobstructive calculus. IMPRESSION: Fatty infiltration of the liver. Electronically Signed: Won Rebolledo MD at 10:14 EDT , STUDY: ABDOMINAL ULTRASOUND - ELASTOGRAPHY REASON FOR VISIT: Male, 77 years old. Fatty infiltration of the liver. TECHNIQUE: Liver stiffness measurements were obtained on a [employer] 85 ultrasound machine using a CA 1-7 probe following the SRU guidelines. 3 measurements were obtained using a 2-D-SWE method. TheIQR/M was 22% suggesting a quality data set. TECHNICAL QUALITY: Adequate. COMPARISON: Comparison is made with prior study done earlier today. FINDINGS: Liver: Fatty infiltration of the liver. Median liver stiffness measured 11.8 kPa. Abdomen: There is no demonstrated mass lesion. US/Abdomen Limited IMPRESSION: Liver stiffness measures 11.8 kPa compatible with F2-F3 (Mild to moderate liver fibrosis) Metavir score. Electronically Signed: Won Rebolledo MD at 10:39 EDT ,
== END | disposition home or self-care (01) ==
LOC: US 07:43
PROVIDERS: PCP Internal Medicine; Referring Provider Nurse Practitioner Adult Health; Visit Provider Nurse Practitioner Adult Health
DX: K76.0 Fatty (change of) liver, not elsewhere classified (principal)
CPT/HCPCS: 76705; 76981

== ENCOUNTER 2023-02-11 14:00 | Outpatient (RCR) | payer MEDICARE, SELFPAY ==
--- NOTE | 2023-01-15 12:02 | HP.PTEVAL_ITS ---
Patient's Visit Information RANI VELASCO Jr. is a 77 year old M referred to Physical Therapy by Dr. Rachel Wolfe DO with a diagnosis of Lumbar Pain. Date of Evaluation: 01/15/23 Physical Therapist: Katerina Carballo DPT - Visit Plan Frequency: 2x /Week Duration: 4 Weeks Plan: Focus on core strength/stabilization- gym membership through [employer] and would like transition program- does not like extension or right rot/SB- Postural awareness. HEP Given IE: TA contraction, Bridge, Hip add, Hip abd - Subjective Patient reports that his back has been bothering him for a couple of years- was out shoveling snow and it comes and goes. He has issues standing for long periods (10-15 min), up/down stairs, getting up from sitting. Sitting down relieves the pain. Pain is located on the right side- he had his right hip replaced [address] Pat- no issues with the hip since then. Worst: 3/10 Best: 0/10. Once he sits down the pain goes away. Just feels that something gets out of whack inside. Does report that he sometimes feels the right leg feels achy. No N/T in the toes. Saw the MD who took x-rays and then sent him to PT. [facility] level. He has a [employer] membership. Sleep: not disturbed. Not as active as he use to be due Idiopathic Pulmonary Fibrosis- is followed by Pulmonary. PMHx/Meds: no changes since 09/25. - Objective Posture: FH, RS can correct but does not maintain. Gait: slightly deviated but does lack 10 degrees of knee extension- dec stance on left LE. HR/TR: able with UE A. SLS: weight shift but does not SLS. ROM: Lumbar: Flexion: hands to mid ramirez, Extn: neutral with discomfort, SB and Rot to the right increase pain and limited by 50%, SB left and Rot Left: diminished by 25%, LE: WFL. Sensation: WFL to gross touch bilateral. Flex: HS: severe, Gastroc: moderate. Strength: Core: fair minus, Hip: 4/5 throughout, Knee: 4+/5, Ankle: 5/5. Special Test: dural signs: positive on the left - Special Tests L/S Slump test left side: Negative L/S Slump test right side: Positive L/S Left Straight Leg Raise: Negative L/S Right Straight Leg Raise: Positive - Balance/Special Test Scores Oswestry Low Back Score: 6 - Goals Goal 1:: Patient will be I with HEP and progression Goal Time Frame: 4-6 Weeks Goal 2:: Patient will maintain proper posture t/o tx Goal Time Frame: 4-6 Weeks Goal 3:: Patient will report ability to stand >30 min without having to sit Goal Time Frame: 4-6 Weeks Goal 4:: Patient will report 80% improvement Goal Time Frame: 4-6 Weeks - Rehabilitation Potential Physical Therapy Diagnosis: Patient presents with hypomobility- he has decreased LE and core strength/stabilization, flex, proprioception and muscular endurance leading to poor posture and increased pain with ADL's. Rehabilitation Potential: Good - Anticipated Interventions Patient/Client Instruction: Educate patient on: Benefits of Fitness Program Therapeutic Exercise to Include: Strength training, Endurance training, Balance training, Coordination, Agility training, Body mechanics, Postural training, Flexibilty training, Gait and locomotor training, Neuromotor development, Dynamic Lumbar Stabilization, Scapular Strength/Stabilization Cryotherapy (ice pack, ice massage): Yes Thermo therapy (hot pack): Yes Thank you for the opportunity to evaluate your patient. For Medicare and Medicare HMO plans, please review the plan of care and approve it. It will need to be FAXED BACK to us at [phone] for Medicare purposes. For Medicare only, by signing this I certify the plan of care. Please let me know if there are questions or concerns regarding this plan of care. Physician Radha swanson: Date:
--- NOTE | 2023-02-11 14:57 | HP.PTREVAL ---
Dr. Rachel Wolfe, DO, It has been my pleasure to treat RANI VELASCO Jr. over the last 8 visits for Lumbar Pain. Please see the progress note below for an update on the physical therapy plan of care! Subjective: Patient reports that he was doing fairly well then they added stuff wed- and then he was sore and Saturday- and mowed the lawn on Saturday (push mow- about an hour). Self propelled and incline. He does feel a little bit better after the stretches that they did today. He will do the stretches at home and then come in here for silver sneakers. He felt like his back was 50% better prior to his set back. Objective/Function: Posture: FH, RS can correct but does not maintain. Gait: slightly deviated but does lack 10 degrees of knee extension- dec stance on left LE. HR/TR: able with UE A. SLS: 2-3 sec ROM: Lumbar: Flexion: hands to mid ramirez, Extn: neutral with discomfort, SB and Rot to the right increase pain and limited by 50%, SB left and Rot Left: diminished by 25%, LE: WFL. Sensation: WFL to gross touch bilateral. Flex: HS: severe, Gastroc: moderate. Strength: Core: fair minus, Hip: 4/5 throughout, Knee: 4+/5, Ankle: 5/5. Special Test: dural signs: positive on the left. - Special Tests. L/S Slump test left side: Negative. L/S Slump test right side: Positive. L/S Left Straight Leg Raise: Negative. L/S Right Straight Leg Raise: Positive Plan Plan: 02/11/23: Hold- will do HEP for 4 weeks- follow up PRN. Focus on core strength/stabilization- gym membership through [employer] and would like transition program- does not like extension or right rot/SB- Postural awareness. HEP Given IE: TA contraction, Bridge, Hip add, Hip abd Balance/Gait/Functional tests - Balance/Special Test Scores Oswestry Low Back Score: 10 Goals Goal 1:: Patient will be I with HEP and progression Goal Time Frame: 4-6 Weeks Goal 2:: Patient will maintain proper posture t/o tx Goal Time Frame: 4-6 Weeks Goal 3:: Patient will report ability to stand >30 min without having to sit Goal Time Frame: 4-6 Weeks Goal 4:: Patient will report 80% improvement Goal Time Frame: 4-6 Weeks Anticipated Interventions Patient/Client Instruction: Educate patient on: Benefits of Fitness Program Therapeutic Exercise to Include: Strength training, Endurance training, Balance training, Coordination, Agility training, Body mechanics, Postural training, Flexibilty training, Gait and locomotor training, Neuromotor development, Dynamic Lumbar Stabilization, Scapular Strength/Stabilization Cryotherapy (ice pack, ice massage): Yes Thermo therapy (hot pack): Yes Please do not hesitate to contact me at [phone] by phone or if you have questions or concerns regarding this new plan of care! Sincerely, JENNIFER BowersT
--- NOTE | 2023-05-20 13:03 | HP.PTDCSUM ---
Discharge Summary D/C summary: It has been my pleasure to treat RANI VELASCO Jr. referred by Dr. Rachel Wolfe DO, with the diagnosis of Lumbar Pain for a total of 8 visit(s). Discharge Date: Please see the following information for a summary of their discharge status. Subjective Subjective: Patient reports that he was doing fairly well then they added stuff wed- and then he was sore and Saturday- and mowed the lawn on Saturday (push mow- about an hour). Self propelled and incline. He does feel a little bit better after the stretches that they did today. He will do the stretches at home and then come in here for silver sneakers. He felt like his back was 50% better prior to his set back. Pain Bilateral Back: Pain Intensity (Out of 10): 4 Overall Improvement % Improvement: 50 Objective Objective/Function: Posture: FH, RS can correct but does not maintain. Gait: slightly deviated but does lack 10 degrees of knee extension- dec stance on left LE. HR/TR: able with UE A. SLS: 2-3 sec ROM: Lumbar: Flexion: hands to mid ramirez, Extn: neutral with discomfort, SB and Rot to the right increase pain and limited by 50%, SB left and Rot Left: diminished by 25%, LE: WFL. Sensation: WFL to gross touch bilateral. Flex: HS: severe, Gastroc: moderate. Strength: Core: fair minus, Hip: 4/5 throughout, Knee: 4+/5, Ankle: 5/5. Special Test: dural signs: positive on the left - Special Tests L/S Slump test left side: Negative L/S Slump test right side: Positive L/S Left Straight Leg Raise: Negative L/S Right Straight Leg Raise: Positive Goals Goal 1:: Patient will be I with HEP and progression Goal 2:: Patient will maintain proper posture t/o tx Goal 3:: Patient will report ability to stand >30 min without having to sit Goal 4:: Patient will report 80% improvement Plan Plan: 02/11/23: Hold- will do HEP for 4 weeks- follow up PRN Focus on core strength/stabilization- gym membership through [employer] and would like transition program- does not like extension or right rot/SB- Postural awareness HEP Given IE: TA contraction, Bridge, Hip add, Hip abd D/C Information d/c sentence: If there are questions or concerns regarding this patient's physical therapy, please feel free to call me at [phone]. Thank you for the referral of this patient. Sincerely, Katerina Carballo, DPT Balance/Gait/Functional tests Balance/Special Test Scores Oswestry Low Back Score: 10
== END 2023-02-11 19:00 | disposition home or self-care (01) ==
LOC: PT 14:00
PROVIDERS: PCP Internal Medicine; Referring Provider Internal Medicine; Visit Provider Internal Medicine
DX: M54.50 Low back pain, unspecified (principal)
CPT/HCPCS: 97110; 97162; 97164

== ENCOUNTER → 2023-09-02 | Outpatient (CLI) | payer MEDICARE, SELFPAY ==
--- NOTE | 2023-09-02 13:50 | ECHOD_ITS ---
Reason For Study: Dyspnea Procedure This was a 2D Doppler, Color Flow transthoracic echocardiogram. Exam performed in department. Left Ventricle Normal LV size. Left ventricular systolic function is normal. The estimated ejection fraction is 60 %. Stage 1 diastolic dysfunction. No regional wall motion abnormalities noted. Right Ventricle Normal right ventricle. Normal systolic function. Atria The left atrium is mildly enlarged. Normal right atrium. Mitral Valve Normal mitral valve. Tricuspid Valve Normal tricuspid valve. Aortic Valve Normal aortic valve. Pulmonic Valve Normal pulmonic valve. Great Vessels Normal aortic root. The pulmonary artery is normal size. Normal inferior vena cava. Pericardium/Pleural Trivial pericardial effusion. MMode/2D Measurements & Calculations LVIDd: 5.3 cm IVSd: 1.2 cm Ao root diam: 3.7 cm LVIDs: 3.5 cm LVPWd: 0.94 cm LA dimension: 4.5 cm FS: 35.1 % LAV(MOD-bp): 81.2 ml LA A4 area: 26.6 cm2 RA A4 area: 19.1 cm2 LAV(MOD-bp) Indexed: 33.6 ml/m2 LAV(MOD-sp2): 74.6 ml LAV(MOD-sp4): 76.8 ml Time Measurements MV dec time: 0.23 sec Doppler Measurements & Calculations MV E max bhupinder: 60.3 cm/sec Lat Peak E' Bhupinder: 12.3 cm/sec Med Peak E' Bhupinder: 8.0 cm/sec MV A max bhupinder: 83.5 cm/sec E/E' lat: 4.9 E/E' med: 7.5 MV E/A: 0.72 MV V2 max: 92.4 cm/sec MV P1/2t max bhupinder: 71.4 cm/sec Ao V2 max: 129.1 cm/sec MV max P.4 mmHg MV P1/2t: 82.1 msec Ao max P.7 mmHg MV V2 mean: 45.2 cm/sec MV dec slope: 254.7 cm/sec2 Ao V2 mean: 88.6 cm/sec MV mean P.98 mmHg MVA(P1/2t): 2.7 cm2 Ao mean P.5 mmHg MV V2 VTI: 28.6 cm Ao V2 VTI: 26.3 cm AV (velocity ratio): 1.0 LV V1 max: 115.2 cm/sec PA V2 max: 96.1 cm/sec LV V1 max P.3 mmHg LV V1 mean P.6 mmHg LV V1 mean: 74.1 cm/sec LV V1 VTI: 26.8 cm ECHO/Echo Complete Interpretation Summary Normal LV size. Left ventricular systolic function is normal. The estimated ejection fraction is 60 %. The left atrium is mildly enlarged. Stage 1 diastolic dysfunction. Ordering Physician: Dante Douglass Referring Physician: Rachel Wolfe D.O. Performed By: Martin Jackson RCS
== END | disposition home or self-care (01) ==
LOC: CVS 13:49
PROVIDERS: PCP Internal Medicine; Referring Provider Nurse Practitioner Family; Visit Provider Nurse Practitioner Family
DX: R06.09 Other forms of dyspnea (principal); I25.10 Atherosclerotic heart disease of native coronary artery without angina pectoris; I10 Essential (primary) hypertension; E78.5 Hyperlipidemia, unspecified
CPT/HCPCS: 93306

== ENCOUNTER → 2024-06-23 | Outpatient (CLI) | payer MEDICARE, SELFPAY ==
--- NOTE | 2024-06-23 07:34 | US_ITS ---
STUDY: ABDOMINAL ULTRASOUND - RIGHT UPPER QUADRANT REASON FOR VISIT: Male, 78 years old liver fibrosis TECHNIQUE: Ultrasound evaluation of the right upper quadrant was performed with real-time and static ro-scale imaging. TECHNICAL QUALITY: Adequate. COMPARISON: 02/07/2023 FINDINGS: Liver: The liver measures 15.5 cm. There is increased echogenicity consistent with fatty infiltration. The bile ducts are within normal limits. There is hepatic color flow. The direction of portal flow is hepatopetal. There is no demonstrated mass lesion. Gallbladder: Normal distended gallbladder. The gallbladder wall measures 2 mm. There is a negative sonographic Betancourt''s sign. There is no pericholecystic fluid. There are no gallstones. Common Bile Duct (C.B.D.): The common bile duct measures 4 mm. Pancreas: There is nonvisualization of the pancreas.. Right Kidney: Normal size of the right kidney. The right kidney measures 11.8 cm. Normal renal cortex. The right cortex measures 1.4 cm. There is no demonstrated renal mass or cyst. There is no right hydronephrosis. US/Abdomen Limited IMPRESSION: Fatty infiltration of the liver. Electronically Signed: Jamal Barajas MD at 13:14 EDT ,
== END | disposition home or self-care (01) ==
PROVIDERS: PCP Internal Medicine; Referring Provider Internal Medicine; Visit Provider Internal Medicine
DX: K74.00 Hepatic fibrosis, unspecified (principal)
CPT/HCPCS: 76705

== ENCOUNTER → 2025-01-19 | Outpatient (CLI) | payer MEDICARE, SELFPAY ==
--- NOTE | 2025-01-19 15:49 | CT_ITS ---
PROCEDURE: CHEST WITHOUT CONTRAST 01/19/2025 REASON FOR EXAM: SINGULAR PULMONARY NODULE TECHNIQUE: Chest CT was performed without IV contrast. Multiplanar reformats were generated. One or more dose reduction techniques were used (e.g., Automated exposure control, adjustment of the mA and/or kV according to patient size, use of iterative reconstruction technique COMPARISON: 07/11/2021; images only are available for review, the report is not available at the time of the dictation. RADIATION DOSE SUMMARY: CTDlvol: 19.42 mGy DLP: 727.89 mGycm FINDINGS: Note that evaluation of the vasculature, carroll, and soft tissues is limited in the absence of IV contrast. Heart/pericardium: Severe multivessel coronary atherosclerosis and/or stents. Trace aortic annular calcification. Aorta: Mild/moderate atherosclerosis. Pulmonary arteries: Mildly enlarged central pulmonary arteries may indicate pulmonary arterial hypertension. Lymph nodes: RIGHT precarinal node, 16 mm short axis, unchanged from 06/29/2020. Lungs/pleura: Irregular areas of largely subpleural reticulation and mild ground-glass. Mild cystic changes present in a few areas however without rebekah honeycombing. Some associated mild architectural distortion is present. There may be a slight mid to basilar predominance. Findings have increased from 07/11/2021. 6 x 4 mm LEFT upper lobe nodule unchanged from 07/11/2021 (series 3, image 148). Airways: Unremarkable. No significant bronchiectasis. Chest wall: Unremarkable. Upper abdomen: Cholelithiasis. Partially imaged duodenal diverticulum. Atherosclerosis. Musculoskeletal: Multilevel spondylosis including findings suggestive of diffuse idiopathic skeletal hyperostosis. Degenerative changes of the partially imaged RIGHT [id number]-LEFT shoulders. Mild scoliosis. CT/Chest without Contrast IMPRESSION: 1. Chronic interstitial abnormality has increased from 07/11/2021. The pattern is borderline but felt most consistent with indeterminate for UIP. Consider pulmonology consultation. 2. No definite new or enlarging pulmonary nodule identified, noting that sensit ivity is limited by background parenchymal changes. 3. Mediastinal lymphadenopathy, nonspecific and potentially reactive, similar t o 06/29/2020 further suggesting a benign/indolent etiology. 4. Additional description as above. Reading Location: [id number]
== END | disposition home or self-care (01) ==
LOC: CT 15:45
PROVIDERS: PCP Internal Medicine; Referring Provider Internal Medicine Pulmonary Disease; Visit Provider Internal Medicine Pulmonary Disease
DX: R91.1 Solitary pulmonary nodule (principal)
CPT/HCPCS: 71250

== ENCOUNTER → 2025-05-22 | Outpatient (CLI) | payer MEDICARE, SELFPAY ==
--- NOTE | 2025-05-22 08:52 | ECHOD_ITS ---
Reason For Study Reason For Study: PULMONARY FIBROSIS Procedure This was a 2D Doppler, Color Flow transthoracic echocardiogram. Exam performed in department. Left Ventricle Normal LV size. The left ventricular ejection fraction is 65 %. Stage 1 diastolic dysfunction. No regional wall motion abnormalities noted. Right Ventricle Normal RV size. Normal systolic function. Atria The left atrium is moderately enlarged. Normal right atrium. Mitral Valve Normal mitral valve. Tricuspid Valve Normal tricuspid valve. Mild tricuspid valve insufficiency. Pulmonary artery systolic pressure is 18 mmHg. Aortic Valve Trisinus/trileaflet aortic valve. Pulmonic Valve Normal pulmonic valve. Great Vessels Normal aortic root. The pulmonary artery is normal size. Inferior vena cava collapse with respiration. Pericardium/Pleural No pericardial effusion. MMode/2D Measurements & Calculations LVIDd: 5.0 cm IVSd: 1.1 cm Ao root diam: 3.8 cm LVIDs: 3.6 cm LVPWd: 1.1 cm RVDd: 4.0 cm FS: 27.4 % LAV(MOD-bp): 95.4 ml LVAd ap4: 24.9 cm2 LVAd ap2: 24.9 cm2 LAV(MOD-bp) Indexed: 40.0 ml/m2 LVLd ap4: 8.0 cm LVLd ap2: 7.4 cm LAV(MOD-sp2): 62.1 ml EDV(MOD-sp4): 65.5 ml EDV(MOD-sp2): 71.1 ml LAV(MOD-sp4): 117.3 ml EDV(sp4-el): 66.1 ml EDV(sp2-el): 71.4 ml LVAs ap4: 13.5 cm2 LVAs ap2: 14.5 cm2 LVLs ap4: 7.2 cm LVLs ap2: 6.4 cm ESV(MOD-sp4): 22.3 ml ESV(MOD-sp2): 30.0 ml ESV(sp4-el): 21.4 ml ESV(sp2-el): 28.0 ml EF(MOD-sp4): 65.9 % EF(MOD-sp2): 57.8 % EF(sp4-el): 67.6 % SV(MOD-sp4): 43.2 ml SV(MOD-sp2): 41.1 ml SV(sp4-el): 44.7 ml SI(MOD-sp4): 18.1 ml/m2 SI(MOD-sp2): 17.3 ml/m2 LA A4 area: 33.4 cm2 LA dimension(2D): 4.1 cm RA A4 area: 19.7 cm2 Time Measurements MV dec time: 0.16 sec Doppler Measurements & Calculations MV E max bhupinder: 56.8 cm/sec Lat Peak E' Bhupinder: 12.5 cm/sec Med Peak E' Bhupinder: 7.1 cm/sec MV A max bhupinder: 71.0 cm/sec E/E' lat: 4.6 E/E' med: 8.0 MV E/A: 0.80 MV V2 max: 87.1 cm/sec MV P1/2t max bhupinder: 74.2 cm/sec Ao V2 max: 129.3 cm/sec MV max P.0 mmHg MV P1/2t: 54.1 msec Ao max P.7 mmHg MV V2 mean: 41.4 cm/sec Ao V2 mean: 98.3 cm/sec MV mean P.82 mmHg MV dec slope: 401.4 cm/sec2 Ao mean P.1 mmHg MV V2 VTI: 21.6 cm MVA(P1/2t): 4.1 cm2 Ao V2 VTI: 29.2 cm AV (velocity ratio): 0.63 LV V1 max: 82.8 cm/sec PA V2 max: 126.4 cm/sec TR max bhupinder: 189.3 cm/sec LV V1 max P.7 mmHg PA V2 mean: 77.8 cm/sec TR max P.3 mmHg LV V1 mean P.4 mmHg LV V1 mean: 56.6 cm/sec LV V1 VTI: 18.4 cm ECHO/Echo Complete Interpretation Summary The left ventricular ejection fraction is 65 %. Normal LV size. Stage 1 diastolic dysfunction. Pulmonary artery systolic pressure is 18 mmHg. Ordering Physician: Sigifredo Benitez V Referring Physician: Fast. Ramos Performed By: Marge Gerardo RDCS, RVT
== END | disposition home or self-care (01) ==
LOC: CVS 08:46
PROVIDERS: PCP Internal Medicine; Referring Provider Internal Medicine Pulmonary Disease; Visit Provider Internal Medicine Pulmonary Disease
DX: J84.10 Pulmonary fibrosis, unspecified (principal); R06.00 Dyspnea, unspecified
CPT/HCPCS: 93306

== ENCOUNTER → 2025-06-25 | Outpatient (CLI) | payer MEDICARE, SELFPAY ==
--- NOTE | 2025-06-25 09:48 | US_ITS ---
PROCEDURE: ABD LIMITED W/ ELASTOGRAPHY REASON FOR EXAM: HEPATIC FIBROSIS DUE TO NONALCOHOLIC FATTY LIVER COMPARISON: None. TECHNIQUE: Right upper quadrant abdominal ultrasound. Mary ElastQ Imaging shear wave elastography for non-invasive assessment of liver tissue stiffness. Mary EPIQ Elite. FINDINGS: LIVER: Size: Unremarkable Length: 14.3 cm Echotexture: Diffusely echogenic suggesting fatty infiltration Contour: Normal Lesions: None identified Elastography: EQI Med: 9.5 kPa EQI Med Bhupinder: 1.77 m/s IQR/Med: 23 %* GALLBLADDER: No stones sludge wall thickening or tenderness. COMMON BILE DUCT: Nonvisualized due to overlying bowel gas. . PANCREAS: Obscured by bowel gas. Visualized portions of the right kidney are unremarkable. No right upper quadrant ascites. US/ABD Limited w/ Elastography IMPRESSION: MODERATE TO SEVERE HEPATIC FIBROSIS Fatty infiltration of the liver. Reference Values: SRU <1.37 m/s (5.7kPa): No to mild fibrosis 1.37 m/s - 2.2 m/s: Moderate to severe fibrosis >2.2 m/s (15kPa): Significant fibrosis / cirrhosis METAVIR Score F2 or higher: 1.34 m/s (5.7kPa) F3 or higher: 1.55 m/s (7.3kPa) F4: 1.80 m/s (10kPa) * If the IQR/Med is >30%, the variance in the measurements is a large and the a ccuracy of the measurement may be in question. Reading Location: [facility]
== END | disposition home or self-care (01) ==
LOC: US 09:42
PROVIDERS: PCP Internal Medicine; Referring Provider Internal Medicine; Visit Provider Internal Medicine
DX: K76.0 Fatty (change of) liver, not elsewhere classified (principal)
CPT/HCPCS: 76705; 76981

== ENCOUNTER → 2025-10-08 | Outpatient (CLI) | payer MEDICARE, SELFPAY ==
[2025-10-08 09:04] LABS: Mucous, Urine 0 SEEN /hpf (<or=2+); Red Blood Cells-Urine 0 SEEN /hpf (0-5); Squamous Epithelial Cells - UA 0 SEEN /hpf (0-5)
[2025-10-08 10:16] LABS: Color, Urine Yellow (Yellow); Glucose, Dipstick 100 mg/dl (Normal); Ketone-Dipstick 5 mg/dl (Negative); Leukocyte Esterase-Dipstick Negative /ul (Negative); Nitrite-Dipstick Negative (Negative); Occult Blood-Urine Negative /ul (Negative); Protein-Dipstick 30 mg/dl (Negative); Specific Gravity, Urine 1.020 (1.002-1.030); Urine Bilirubin Dipstick Negative (Negative)
[2025-10-08 10:40] LABS: Hematocrit 46.0 % (40-54); Hemoglobin 15.7 g/dL (13.0-16.5); Immature Granulocytes Count 0.020 X10^3/uL (0.0-0.0); Mean Corp Hgb Conc 34.1 g/dL (32-36); Mean Corpuscular Volume 91.5 fL (80-94); Mean Platelet Vol. 9.9 fl (6.2-12.0); NRBC Flagged by Analyzer 0 % (0-5); Platelet Count 194 K/mm3 (150-450); RBC Distribution Width CV 13.2 % (11.6-14.6); RBC Distribution Width SD 44.6 fl (35.1-43.9); Red Blood Count 5.03 M/mm3 (4.6-6.2); White Blood Count 8.0 K/mm3 (4.4-11.0)
[2025-10-08 10:47] LABS: Creatinine, Urine (random) 162.00 mg/dL (39.00-259.00); Microalbumin,Random Urine 89.6 mg/L (<20 mg/L)
[2025-10-08 11:05] LABS: AST(SGOT) 35 U/L (<=37); Alanine Aminotransfer ALT/SGPT 23 U/L (<=46); Albumin, Serum 4.2 g/dL (3.4-4.8); Alkaline Phosphatase 83 U/L (40-129); Anion Gap 17 (5-15); BUN 23 mg/dL (4-19); BUN/Creat Ratio 18.8 RATIO (10-20); Calcium,Total 10.2 mg/dL (7.6-11.0); Carbon Dioxide 20.5 mmol/L (21.0-32.0); Chloride 101 mmol/L (98-108); Cholesterol 185 mg/dL (<=200); Globulin 3.6 g/dL (2.2-4.2); Glucose 138 mg/dL (70-99); Low Density Lipoprotein Calc. 75 mg/dL; Potassium 4.1 mmol/L (3.3-5.1); Triglycerides 120 mg/dL; Very Low Density Lipoprotein 24 mg/dL (5-40); Vitamin D,25 Hydroxy 52.6 ng/mL (30-100); cholesterol:hdl ratio screen 2.06
[2025-10-11 14:09] LABS: PSA, Total 0.6 ng/mL (0.0-4.0)
== END | disposition home or self-care (01) ==
LOC: CIMLAB 09:02
PROVIDERS: PCP Internal Medicine; Referring Provider Internal Medicine; Visit Provider Internal Medicine
DX: E11.21 Type 2 diabetes mellitus with diabetic nephropathy (principal); E55.9 Vitamin D deficiency, unspecified; I25.10 Atherosclerotic heart disease of native coronary artery without angina pectoris; K76.0 Fatty (change of) liver, not elsewhere classified; Z12.5 Encounter for screening for malignant neoplasm of prostate
CPT/HCPCS: 36415; 80053; 80061; 81001; 82043; 82105; 82306; 82570; 83036; 84153; 85025

== ENCOUNTER → 2025-10-27 | Outpatient (CLI) | payer MEDICARE, SELFPAY ==
--- NOTE | 2025-10-27 08:38 | STRESSREP ---
Stress Test Report Pharmacologic myocardial perfusion stress test. Date Test Performed: 10/27/2025 79-year-old male with a history of hypertension, hyperlipidemia, and diabetes presented for Sammie nuclear stress test due to shortness of breath and history of atherosclerotic heart disease. Resting EKG demonstrates sinus bradycardia with a rate of 58 bpm. Resting blood pressure is 142/74 mmHg. 0.4 mg of regadenoson was infused per usual protocol followed by rapid intravenous saline flush injection. Continuous EKG monitoring was performed. The maximum heart rate was 68 bpm which was 48% of max impacted heart rate the maximum workload was 1.0 metabolic equivalent. At rest there were no ST or T wave changes noted to suggest ischemia and at peak infusion nonspecific ST changes were noted which did not meet the criteria for ischemia. No clinical angina is noted. The final blood pressure was 142/74 mmHg. Myocardial perfusion protocol. 15 mCi of technetium 99m sestamibi was injected at rest. 0.4 mg of regadenoson was infused per usual protocol. At peak infusion 45 mCi of technetium 99m sestamibi was injected stress images were obtained stress and rest images were reconstructed and compared in the short axis vertical long and horizontal long axis. Gated images were also obtained. Perfusion SPECT analysis: Review of the stress images demonstrate a small sized mild intensity defect involving the apical lateral wall of the myocardium. The resting images demonstrated a small sized mild intensity defect involving the apical lateral wall of the myocardium. There is a small sized mild intensity partially reversible defect involving the apical lateral wall of the myocardium indicating a area of kathy-infarct ischemia. Ischemic territory estimated at only 3% of the myocardium indicating a low risk finding. Also noted is some diaphragmatic/GI attenuation artifact limiting interpretation. Gated SPECT analysis: The gated ejection fraction is 69%. Conclusion: Abnormal pharmacologic myocardial perfusion stress test. Noting a small sized mild intensity partially reversible defect in the apical lateral wall concerning for kathy-infarct ischemia. Quality limited due to GI/diaphragmatic attenuation artifact. Clinical correlation advised. 69% ejection fraction.
== END | disposition home or self-care (01) ==
LOC: CVS 06:13
PROVIDERS: PCP Internal Medicine; Referring Provider Internal Medicine; Visit Provider Internal Medicine
DX: I25.10 Atherosclerotic heart disease of native coronary artery without angina pectoris (principal)
CPT/HCPCS: 78452; 93017; A9500; A4216; J2785